=== PATIENT | male | born 1955 | race Caucasian/White ===

== ENCOUNTER 2017-09-22 21:17 | Inpatient (IN) | payer BC ==
[~2017-09-22] VITALS: Ht 175.3 cm; Wt 72.7 kg
[~2017-09-22 21:17] MED LIST: ACET325 PO; ALBU90OI INH; ALUMAG30SU PO; ASPI325 PT; ASPI325EC PO; ATOR10; ATOR40TA PO; ATOR40TA PT; Ambien10 MG PO; Ativan1 MG PO; CALCA400CH PO; CHLORHEXIDINE FL1 ML MC; CLOP75 PT; Coreg12.5 MG PO; DIPH50 PO; DOC100SO; DOCU100 PO; DULERA 200 MCG/13 GM INH; Flagyl500 MG PO; Flomax0.4 MG PO; GABA250SO PO; GABA250SO PT; GABA300; GABA300 PO; HYDACE10B PO; LAVAP17G PO; LEVFLO500; LEVOFLOXACIN500 MG PO; LEVSOD125 PT; LEVSOD25 PO; LISI5 PO; LORA1 PO; METF500; METO25 PT; METO25ER PO; METPRE4DP PO; NAPR500 PO; OMEP20ER PO; OXYACE5T PO; OXYC1L PO; Oxycodone-Apap1 EAC3 PO; PRILOSEC; PROP10; Penicillin250 MG/5 M PO; Percocet 5-3251 EACH PO; Periogard473 ML MM; SENN8.8S8 PO; SERT100 PO; SIME40L; Synthroid/Lev0.15 MG PO; TEMA15 PO; VALS80; VALSARTAN PO; VALSARTAN/HCTZ; ZOLP10 PO; ZOLP5; Zithromax200 MG/5 M PO; Zofran Odt8 MG PO; Zofran Odt8 MG SL; [UNRECOGNIZED DRUG - OTHER] PO
[2017-09-22] MEDS ORDERED: BACL10 PO (23:09)
[2017-09-22] MEDS ORDERED: Questran4 GM (23:11)
[2017-09-22] MEDS ORDERED: Benadryl 50 mg50 MG PT (23:12)
[2017-09-22] MEDS ORDERED: GABA250SO PO (23:13)
[2017-09-22] MEDS ORDERED: LORA1 PO (23:14)
[2017-09-22] MEDS ORDERED: HYDR-86 PO (23:14)
[2017-09-22 23:18] LABS: BASOPHILS ABSOLUTE AUTO 0.02 K/mm3 (0.00-0.23); BASOPHILS PERCENT AUTO 0 % (0-2); EOSINOPHILS PERCENT AUTO 2 % (0-6); Hematocrit 28.1 % (37.0-53.0); Hemoglobin 8.9 g/dL (13.5-17.5); IMMATURE GRAN ABSOLUTE AUTO 0.02 K/mm3 (0.00-0.10); IMMATURE GRAN PERCENT AUTO 0 % (0-1); LYMPHOCYTES ABSOLUTE AUTO 1.69 K/mm3 (0.84-5.20); LYMPHOCYTES PERCENT AUTO 18 % (21-46); MONOCYTES ABSOLUTE AUTO 0.62 K/mm3 (0.16-1.47); MONOCYTES PERCENT AUTO 7 % (4-13); Mean Corpuscular HGB 27.4 pg (26.0-34.0); Mean Corpuscular HGB Conc 31.7 g/dL (31.5-36.5); Mean Corpuscular Volume 87 fL (80-100); Mean Platelet Volume 8.8 fL (9.1-12.4); NEUTROPHILS ABSOLUTE AUTO 6.64 K/mm3 (1.96-9.15); NEUTROPHILS PERCENT AUTO 72 % (41-73); Platelet Count 507 K/mm3 (150-400); RDW Coefficient Variation 19.7 % (11.7-14.2); RDW Standard Deviation 60.4 fL (35.1-46.3); Red Blood Cell Count 3.25 M/mm3 (4.30-5.90); White Blood Cell Count 9.19 K/mm3 (4.00-11.30)
[2017-09-22 23:30] LABS: International Normalized Ratio 1.09; Prothrombin Time Results 11.4 Sec (9.7-11.5)
[2017-09-22 23:34] LABS: Alanine Aminotransfer (ALT/SGP 31 U/L (12-78); Albumin, Blood 1.7 g/dL (3.4-5.0); Albumin/Globulin Ratio 0.4 (0.8-1.8); Alk Phos 188 U/L (50-136); Anion Gap 8 mmol/L (6-16); Aspartate Aminotrans (AST/SGOT 38 U/L (12-37); Bilirubin, Total 0.3 mg/dL (0.1-1.0); Blood Urea Nitrogen 7 mg/dL (8-24); Bun/Creatinine Ratio 8.9 (12.0-20.0); CO2, Blood 29 mmol/L (21-32); CPK Creatine Kinase 96 U/L (39-308); Calcium, Blood 7.7 mg/dL (8.5-10.1); Chloride, Blood 104 mmol/L (98-108); Creatinine, Blood 0.79 mg/dL (0.60-1.20); Globulin, Blood 4.3 g/dL (2.2-4.0); Glomerular Filtration Rate >60 (60-); Glucose, Blood 70 mg/dL (70-99); Sodium, Blood 141 mmol/L (136-145); Troponin I <0.015 ng/mL (0.000-0.040)
[2017-09-22 23:38] LABS: Thyroid Stimulating Hormone 0.012 uIU/mL (0.360-4.800); Triiodothyronine, Free 1.58 pg/mL (2.18-3.98)
[2017-09-23 00:14] LABS: Source, Urine Catheter
[2017-09-23 00:18] LABS: Bilirubin, Urine Neg (Neg); Blood, Urine 2+ (Neg); Glucose Qualitative, Urine Neg (Neg); Ketones, Urine Neg (Neg); Leukocyte Esterase, Urine 3+ (Neg); Nitrite, Urine Neg (Neg); Protein, Urine Neg (Neg); Urobilinogen, Urine NORM (Normal)
[2017-09-23 00:43] LABS: Appearance, Urine Cloudy (Clear); Color, Urine Yellow (P-Yellow)
[2017-09-23 00:44] LABS: Bacteria Many /hpf; Squamous Epithelial Cells Not Seen /hpf (Few); White Blood Cells, Urine TNTC /hpf (0-5)
[2017-09-23 01:15] LABS: Magnesium, Blood 1.5 mg/dL (1.6-2.4)
[2017-09-23 05:00] LABS: U Amphetamine Screen Not Detected; U Barbituate Screen Not Detected; U Benzodiazapine Screen DETECTED; U Buprenorphine Screen Not Detected; U Cannabinoids Screen Not Detected; U Cocaine Screen Not Detected; U Methadone Screen Not Detected; U Methamphetamine Screen Not Detected; U Opiates Screen DETECTED; U Oxycodone Screen Not Detected; U Phencyclidine Screen Not Detected; U Propoxyphene Screen Not Detected
[2017-09-23 05:59] LABS: BASOPHILS ABSOLUTE AUTO 0.03 K/mm3 (0.00-0.23); BASOPHILS PERCENT AUTO 0 % (0-2); EOSINOPHILS ABSOLUTE AUTO 0.32 K/mm3 (0.00-0.68); EOSINOPHILS PERCENT AUTO 3 % (0-6); Hematocrit 27.7 % (37.0-53.0); Hemoglobin 8.6 g/dL (13.5-17.5); IMMATURE GRAN ABSOLUTE AUTO 0.03 K/mm3 (0.00-0.10); IMMATURE GRAN PERCENT AUTO 0 % (0-1); LYMPHOCYTES ABSOLUTE AUTO 1.36 K/mm3 (0.84-5.20); LYMPHOCYTES PERCENT AUTO 12 % (21-46); MONOCYTES ABSOLUTE AUTO 0.54 K/mm3 (0.16-1.47); MONOCYTES PERCENT AUTO 5 % (4-13); Mean Corpuscular HGB 27.3 pg (26.0-34.0); Mean Corpuscular Volume 88 fL (80-100); Mean Platelet Volume 8.4 fL (9.1-12.4); NEUTROPHILS ABSOLUTE AUTO 9.09 K/mm3 (1.96-9.15); NEUTROPHILS PERCENT AUTO 80 % (41-73); Platelet Count 433 K/mm3 (150-400); RDW Coefficient Variation 19.8 % (11.7-14.2); RDW Standard Deviation 61.1 fL (35.1-46.3); Red Blood Cell Count 3.15 M/mm3 (4.30-5.90); White Blood Cell Count 11.37 K/mm3 (4.00-11.30)
[2017-09-23 06:17] LABS: Alanine Aminotransfer (ALT/SGP 24 U/L (12-78); Albumin, Blood 1.6 g/dL (3.4-5.0); Albumin/Globulin Ratio 0.4 (0.8-1.8); Alk Phos 181 U/L (50-136); Anion Gap 8 mmol/L (6-16); Aspartate Aminotrans (AST/SGOT 31 U/L (12-37); Bilirubin, Total 0.3 mg/dL (0.1-1.0); Blood Urea Nitrogen 5 mg/dL (8-24); Bun/Creatinine Ratio 6.8 (12.0-20.0); CO2, Blood 29 mmol/L (21-32); Calcium, Blood 7.3 mg/dL (8.5-10.1); Chloride, Blood 107 mmol/L (98-108); Creatinine, Blood 0.74 mg/dL (0.60-1.20); Globulin, Blood 3.6 g/dL (2.2-4.0); Glomerular Filtration Rate >60 (60-); Glucose, Blood 62 mg/dL (70-99); Potassium, Blood 3.9 mmol/L (3.5-5.5); Sodium, Blood 144 mmol/L (136-145); Total Protein, Blood 5.2 g/dL (6.4-8.2)
[2017-09-24 07:14] LABS: BASOPHILS ABSOLUTE AUTO 0.03 K/mm3 (0.00-0.23); BASOPHILS PERCENT AUTO 0 % (0-2); EOSINOPHILS ABSOLUTE AUTO 0.12 K/mm3 (0.00-0.68); EOSINOPHILS PERCENT AUTO 1 % (0-6); Hematocrit 26.2 % (37.0-53.0); Hemoglobin 8.1 g/dL (13.5-17.5); IMMATURE GRAN ABSOLUTE AUTO 0.07 K/mm3 (0.00-0.10); IMMATURE GRAN PERCENT AUTO 0 % (0-1); LYMPHOCYTES ABSOLUTE AUTO 1.02 K/mm3 (0.84-5.20); LYMPHOCYTES PERCENT AUTO 6 % (21-46); MONOCYTES ABSOLUTE AUTO 1.02 K/mm3 (0.16-1.47); MONOCYTES PERCENT AUTO 6 % (4-13); Mean Corpuscular HGB 27.8 pg (26.0-34.0); Mean Corpuscular HGB Conc 30.9 g/dL (31.5-36.5); Mean Corpuscular Volume 90 fL (80-100); Mean Platelet Volume 8.7 fL (9.1-12.4); NEUTROPHILS ABSOLUTE AUTO 16.45 K/mm3 (1.96-9.15); NEUTROPHILS PERCENT AUTO 88 % (41-73); Platelet Count 454 K/mm3 (150-400); RDW Coefficient Variation 20.2 % (11.7-14.2); RDW Standard Deviation 62.6 fL (35.1-46.3); Red Blood Cell Count 2.91 M/mm3 (4.30-5.90); White Blood Cell Count 18.71 K/mm3 (4.00-11.30)
[2017-09-24 07:47] LABS: Alanine Aminotransfer (ALT/SGP 28 U/L (12-78); Albumin, Blood 1.6 g/dL (3.4-5.0); Albumin/Globulin Ratio 0.5 (0.8-1.8); Alk Phos 177 U/L (50-136); Anion Gap 6 mmol/L (6-16); Aspartate Aminotrans (AST/SGOT 45 U/L (12-37); Bilirubin, Total 0.3 mg/dL (0.1-1.0); Blood Urea Nitrogen 7 mg/dL (8-24); Bun/Creatinine Ratio 9.9 (12.0-20.0); CO2, Blood 29 mmol/L (21-32); Calcium, Blood 7.3 mg/dL (8.5-10.1); Chloride, Blood 110 mmol/L (98-108); Globulin, Blood 3.4 g/dL (2.2-4.0); Glomerular Filtration Rate >60 (60-); Glucose, Blood 99 mg/dL (70-99); Magnesium, Blood 1.4 mg/dL (1.6-2.4); Phosphorus, Blood 3.6 mg/dL (2.5-4.9); Potassium, Blood 3.9 mmol/L (3.5-5.5); Prealbumin, Blood 14.9 mg/dL (20.0-40.0); Sodium, Blood 145 mmol/L (136-145)
[2017-09-25 08:14] LABS: BASOPHILS ABSOLUTE AUTO 0.03 K/mm3 (0.00-0.23); BASOPHILS PERCENT AUTO 0 % (0-2); EOSINOPHILS ABSOLUTE AUTO 0.19 K/mm3 (0.00-0.68); EOSINOPHILS PERCENT AUTO 1 % (0-6); Hematocrit 24.8 % (37.0-53.0); Hemoglobin 7.5 g/dL (13.5-17.5); IMMATURE GRAN ABSOLUTE AUTO 0.06 K/mm3 (0.00-0.10); IMMATURE GRAN PERCENT AUTO 0 % (0-1); LYMPHOCYTES ABSOLUTE AUTO 0.96 K/mm3 (0.84-5.20); LYMPHOCYTES PERCENT AUTO 4 % (21-46); MONOCYTES ABSOLUTE AUTO 0.88 K/mm3 (0.16-1.47); MONOCYTES PERCENT AUTO 4 % (4-13); Mean Corpuscular HGB 27.3 pg (26.0-34.0); Mean Corpuscular HGB Conc 30.2 g/dL (31.5-36.5); Mean Corpuscular Volume 90 fL (80-100); Mean Platelet Volume 8.5 fL (9.1-12.4); NEUTROPHILS ABSOLUTE AUTO 21.53 K/mm3 (1.96-9.15); NEUTROPHILS PERCENT AUTO 91 % (41-73); Platelet Count 382 K/mm3 (150-400); RDW Coefficient Variation 20.7 % (11.7-14.2); RDW Standard Deviation 66.2 fL (35.1-46.3); Red Blood Cell Count 2.75 M/mm3 (4.30-5.90); White Blood Cell Count 23.65 K/mm3 (4.00-11.30)
[2017-09-25 08:23] LABS: International Normalized Ratio 1.18; Prothrombin Time Results 12.3 Sec (9.7-11.5)
[2017-09-25 08:33] LABS: Alanine Aminotransfer (ALT/SGP 25 U/L (12-78); Albumin, Blood 1.3 g/dL (3.4-5.0); Albumin/Globulin Ratio 0.4 (0.8-1.8); Alk Phos 147 U/L (50-136); Anion Gap 4 mmol/L (6-16); Aspartate Aminotrans (AST/SGOT 33 U/L (12-37); Bilirubin, Total 0.2 mg/dL (0.1-1.0); Blood Urea Nitrogen 9 mg/dL (8-24); Bun/Creatinine Ratio 15.2 (12.0-20.0); CO2, Blood 30 mmol/L (21-32); Calcium, Blood 6.9 mg/dL (8.5-10.1); Chloride, Blood 111 mmol/L (98-108); Creatinine, Blood 0.59 mg/dL (0.60-1.20); Globulin, Blood 3.3 g/dL (2.2-4.0); Glomerular Filtration Rate >60 (60-); Glucose, Blood 154 mg/dL (70-99); Magnesium, Blood 1.7 mg/dL (1.6-2.4); Phosphorus, Blood 1.8 mg/dL (2.5-4.9); Potassium, Blood 3.5 mmol/L (3.5-5.5); Sodium, Blood 145 mmol/L (136-145); Total Protein, Blood 4.6 g/dL (6.4-8.2)
[2017-09-25 14:15] LABS: Vancomycin, Trough 16.6 ug/mL (5.0-10.0)
[2017-09-26 06:56] LABS: BASOPHILS ABSOLUTE AUTO 0.02 K/mm3 (0.00-0.23); BASOPHILS PERCENT AUTO 0 % (0-2); EOSINOPHILS ABSOLUTE AUTO 0.36 K/mm3 (0.00-0.68); EOSINOPHILS PERCENT AUTO 2 % (0-6); Hematocrit 26.3 % (37.0-53.0); Hemoglobin 8.2 g/dL (13.5-17.5); IMMATURE GRAN ABSOLUTE AUTO 0.03 K/mm3 (0.00-0.10); IMMATURE GRAN PERCENT AUTO 0 % (0-1); LYMPHOCYTES ABSOLUTE AUTO 0.88 K/mm3 (0.84-5.20); LYMPHOCYTES PERCENT AUTO 6 % (21-46); MONOCYTES ABSOLUTE AUTO 0.52 K/mm3 (0.16-1.47); MONOCYTES PERCENT AUTO 4 % (4-13); Mean Corpuscular HGB 27.9 pg (26.0-34.0); Mean Corpuscular HGB Conc 31.2 g/dL (31.5-36.5); Mean Corpuscular Volume 90 fL (80-100); Mean Platelet Volume 8.8 fL (9.1-12.4); NEUTROPHILS ABSOLUTE AUTO 12.89 K/mm3 (1.96-9.15); NEUTROPHILS PERCENT AUTO 88 % (41-73); Platelet Count 323 K/mm3 (150-400); RDW Coefficient Variation 19.6 % (11.7-14.2); RDW Standard Deviation 62.3 fL (35.1-46.3); Red Blood Cell Count 2.94 M/mm3 (4.30-5.90)
[2017-09-26 07:15] LABS: Alanine Aminotransfer (ALT/SGP 20 U/L (12-78); Albumin, Blood 1.1 g/dL (3.4-5.0); Albumin/Globulin Ratio 0.3 (0.8-1.8); Alk Phos 133 U/L (50-136); Anion Gap 5 mmol/L (6-16); Aspartate Aminotrans (AST/SGOT 26 U/L (12-37); Bilirubin, Total 0.3 mg/dL (0.1-1.0); Blood Urea Nitrogen 11 mg/dL (8-24); Bun/Creatinine Ratio 20.1 (12.0-20.0); CO2, Blood 30 mmol/L (21-32); Calcium, Blood 6.8 mg/dL (8.5-10.1); Chloride, Blood 112 mmol/L (98-108); Creatinine, Blood 0.55 mg/dL (0.60-1.20); Globulin, Blood 3.2 g/dL (2.2-4.0); Glomerular Filtration Rate >60 (60-); Glucose, Blood 83 mg/dL (70-99); Magnesium, Blood 1.7 mg/dL (1.6-2.4); Potassium, Blood 3.7 mmol/L (3.5-5.5); Sodium, Blood 147 mmol/L (136-145); Total Protein, Blood 4.3 g/dL (6.4-8.2)
[2017-09-26 14:33] LABS: Vancomycin, Trough 23.5 ug/mL (5.0-10.0)
[2017-09-27 01:58] LABS: Alanine Aminotransfer (ALT/SGP 21 U/L (12-78); Albumin, Blood 1.1 g/dL (3.4-5.0); Albumin/Globulin Ratio 0.3 (0.8-1.8); Alk Phos 127 U/L (50-136); Anion Gap 4 mmol/L (6-16); Aspartate Aminotrans (AST/SGOT 24 U/L (12-37); Bilirubin, Total 0.1 mg/dL (0.1-1.0); Blood Urea Nitrogen 12 mg/dL (8-24); Bun/Creatinine Ratio 20.6 (12.0-20.0); CO2, Blood 29 mmol/L (21-32); Calcium, Blood 6.7 mg/dL (8.5-10.1); Chloride, Blood 112 mmol/L (98-108); Creatinine, Blood 0.58 mg/dL (0.60-1.20); Globulin, Blood 3.4 g/dL (2.2-4.0); Glomerular Filtration Rate >60 (60-); Glucose, Blood 117 mg/dL (70-99); Magnesium, Blood 1.8 mg/dL (1.6-2.4); Phosphorus, Blood 1.5 mg/dL (2.5-4.9); Sodium, Blood 145 mmol/L (136-145); Total Protein, Blood 4.5 g/dL (6.4-8.2); Vancomycin, Trough 14.2 ug/mL (5.0-10.0)
[2017-09-28 05:20] LABS: Hematocrit 27.2 % (37.0-53.0); Hemoglobin 8.7 g/dL (13.5-17.5); Mean Corpuscular HGB 28.2 pg (26.0-34.0); Mean Corpuscular Volume 88 fL (80-100); Platelet Count 340 K/mm3 (150-400); RDW Coefficient Variation 19.4 % (11.7-14.2); RDW Standard Deviation 62.4 fL (35.1-46.3); Red Blood Cell Count 3.09 M/mm3 (4.30-5.90); White Blood Cell Count 12.16 K/mm3 (4.00-11.30)
[2017-09-28 05:50] LABS: Albumin, Blood 1.2 g/dL (3.4-5.0); Anion Gap 5 mmol/L (6-16); Blood Urea Nitrogen 10 mg/dL (8-24); CO2, Blood 30 mmol/L (21-32); Chloride, Blood 109 mmol/L (98-108); Creatinine, Blood 0.53 mg/dL (0.60-1.20); Glomerular Filtration Rate >60 (60-); Glucose, Blood 80 mg/dL (70-99); Phosphorus, Blood 1.3 mg/dL (2.5-4.9); Potassium, Blood 4.2 mmol/L (3.5-5.5); Sodium, Blood 144 mmol/L (136-145)
[2017-09-29 05:29] LABS: Hematocrit 28.1 % (37.0-53.0); Hemoglobin 8.9 g/dL (13.5-17.5); Mean Corpuscular HGB 28.2 pg (26.0-34.0); Mean Corpuscular HGB Conc 31.7 g/dL (31.5-36.5); Mean Corpuscular Volume 89 fL (80-100); Mean Platelet Volume 8.9 fL (9.1-12.4); Platelet Count 347 K/mm3 (150-400); RDW Coefficient Variation 19.4 % (11.7-14.2); RDW Standard Deviation 63.2 fL (35.1-46.3); Red Blood Cell Count 3.16 M/mm3 (4.30-5.90); White Blood Cell Count 9.61 K/mm3 (4.00-11.30)
[2017-09-29 05:40] LABS: Albumin, Blood 1.3 g/dL (3.4-5.0); Anion Gap 4 mmol/L (6-16); Blood Urea Nitrogen 12 mg/dL (8-24); Bun/Creatinine Ratio 20.9 (12.0-20.0); CO2, Blood 31 mmol/L (21-32); Calcium, Blood 7.3 mg/dL (8.5-10.1); Chloride, Blood 106 mmol/L (98-108); Creatinine, Blood 0.58 mg/dL (0.60-1.20); Glomerular Filtration Rate >60 (60-); Glucose, Blood 87 mg/dL (70-99); Magnesium, Blood 1.9 mg/dL (1.6-2.4); Phosphorus, Blood 2.5 mg/dL (2.5-4.9); Potassium, Blood 4.7 mmol/L (3.5-5.5); Sodium, Blood 141 mmol/L (136-145)
[2017-10-01 05:55] LABS: Anion Gap 5 mmol/L (6-16); Blood Urea Nitrogen 13 mg/dL (8-24); Bun/Creatinine Ratio 22.3 (12.0-20.0); CO2, Blood 30 mmol/L (21-32); Calcium, Blood 7.6 mg/dL (8.5-10.1); Chloride, Blood 106 mmol/L (98-108); Creatinine, Blood 0.58 mg/dL (0.60-1.20); Glomerular Filtration Rate >60 (60-); Glucose, Blood 87 mg/dL (70-99); Phosphorus, Blood 3.7 mg/dL (2.5-4.9); Potassium, Blood 4.7 mmol/L (3.5-5.5); Sodium, Blood 141 mmol/L (136-145)
[2017-10-03] MEDS ORDERED: CULTURELLE1 EACH PO (15:21)
[2017-10-03] MEDS ORDERED: METR500 PO (15:22)
[2017-10-03] MEDS ORDERED: FOLI1 PO (15:22)
[2017-10-03] MEDS ORDERED: SACC250C PO (15:23)
[2017-10-03] MEDS ORDERED: QUET100 PO (15:23)
[2017-10-03] MEDS ORDERED: ZINC220 PO (15:24)
[2017-10-03] MEDS ORDERED: VANC250 (15:26)
== END 2017-10-03 18:19 | disposition home health service (06) | DRG 871 ==
LOC: ER 21:17 → MEDS 09-23 00:44
PROVIDERS: Emergency Medicine; Family Medicine; Internal Medicine
PROC: 3E0234Z Introduction of Serum, Toxoid and Vaccine into Muscle, Percutaneous Approach (ICD-10-PCS; 2017-09-23)
PROC: 30233N1 Transfusion of Nonautologous Red Blood Cells into Peripheral Vein, Percutaneous Approach (ICD-10-PCS; principal; 2017-09-25)
DX: A41.4 Sepsis due to anaerobes (principal); G92 Toxic encephalopathy; A04.72 Enterocolitis due to Clostridium difficile, not specified as recurrent; E44.0 Moderate protein-calorie malnutrition; N10 Acute pyelonephritis; Z93.0 Tracheostomy status; Z23 Encounter for immunization; I10 Essential (primary) hypertension; E78.5 Hyperlipidemia, unspecified; K21.9 Gastro-esophageal reflux disease without esophagitis; E86.0 Dehydration; Z68.21 Body mass index [BMI] 21.0-21.9, adult; D64.9 Anemia, unspecified; Z66 Do not resuscitate; Z78.1 Physical restraint status; E83.39 Other disorders of phosphorus metabolism; E16.2 Hypoglycemia, unspecified
CPT/HCPCS: 36415; 36430; 70450; 71046; 74177; 76770; 80048; 80053; 80069; 80202; 81001; 82140; 82550; 82947; 83605; 83690; 83735; 84100; 84134; 84145; 84439; 84443; 84481; 84484; 85025; 85027; 85610; 85730; 86850; 86900; 86901; 86923; 87040; 87077; 87086; 87186; 87493; 92507; 92597; 93005; 93010; 96360; 97110; 97116; 97161; 97164; 97166; 97168; 97530; 97535; 99285; C9113; G8978; G8979; G8987; G8988; G9174; G9175; J0696; J1630; J1650; J2060; J3010; J3370; J7030; J7050; P9016; Q9967

== ENCOUNTER → 2017-10-21 | Outpatient (CLI) | payer OTHER, BC ==
[~2017-10-21] MED LIST changes: +BACL10 PO; +Benadryl 50 mg50 MG PT; +CULTURELLE1 EACH PO; +FOLI1 PO; +HYDR-86 PO; +METR500 PO; +QUET100 PO; +Questran4 GM; +SACC250C PO; +VANC250; +ZINC220 PO
[2017-10-21 12:47] LABS: Adenovirus F 40/41 Not Detected (NOT DETECT); Astrovirus Not Detected (NOT DETECT); Campylobacter Sp Not Detected (NOT DETECT); Cryptosporidium Not Detected (NOT DETECT); Cyclospora Cayetanensis Not Detected (NOT DETECT); E. Coli O157 Not Detected (NOT DETECT); Entamoeba Histolytica Not Detected (NOT DETECT); Enteroaggregative E. coli-EAEC Not Detected (NOT DETECT); Enteropathogenic E. coli-EPEC Not Detected (NOT DETECT); Enterotoxigenic E. coli-ETEC Not Detected (NOT DETECT); Giardia Lamblia Not Detected (NOT DETECT); Norovirus GI/GII Not Detected (NOT DETECT); Plesiomonas Shigelloides Not Detected (NOT DETECT); Rotavirus A Not Detected (NOT DETECT); Salmonella Sp Not Detected (NOT DETECT); Sapovirus Not Detected (NOT DETECT); Shiga Toxin-prod E. coli-STEC Not Detected (NOT DETECT); Shigella/Enteroin E. coli-EIEC Not Detected (NOT DETECT); Vibrio Cholerae Not Detected (NOT DETECT); Vibrio Sp Not Detected (NOT DETECT); Yersinia Enterocolitica Not Detected (NOT DETECT)
== END | disposition home or self-care (01) ==
LOC: LAB EV 12:46
PROVIDERS: Physician Assistant Medical
DX: R19.7 Diarrhea, unspecified (principal)
CPT/HCPCS: 87507

== ENCOUNTER → 2017-10-21 | Outpatient (CLI) | payer OTHER, BC ==
[2017-10-21 13:12] LABS: BASOPHILS ABSOLUTE AUTO 0.04 K/mm3 (0.00-0.23); BASOPHILS PERCENT AUTO 0 % (0-2); EOSINOPHILS PERCENT AUTO 0 % (0-6); Hematocrit 30.6 % (37.0-53.0); Hemoglobin 9.9 g/dL (13.5-17.5); IMMATURE GRAN ABSOLUTE AUTO 0.07 K/mm3 (0.00-0.10); IMMATURE GRAN PERCENT AUTO 0 % (0-1); LYMPHOCYTES ABSOLUTE AUTO 0.83 K/mm3 (0.84-5.20); LYMPHOCYTES PERCENT AUTO 5 % (21-46); MONOCYTES ABSOLUTE AUTO 1.32 K/mm3 (0.16-1.47); MONOCYTES PERCENT AUTO 7 % (4-13); Mean Corpuscular HGB 29.1 pg (26.0-34.0); Mean Corpuscular HGB Conc 32.4 g/dL (31.5-36.5); Mean Corpuscular Volume 90 fL (80-100); Mean Platelet Volume 9.2 fL (9.1-12.4); NEUTROPHILS ABSOLUTE AUTO 16.14 K/mm3 (1.96-9.15); NEUTROPHILS PERCENT AUTO 88 % (41-73); Platelet Count 331 K/mm3 (150-400); RDW Coefficient Variation 18.6 % (11.7-14.2); RDW Standard Deviation 61.3 fL (35.1-46.3)
[2017-10-21 13:34] LABS: Alanine Aminotransfer (ALT/SGP 97 U/L (12-78); Albumin/Globulin Ratio 0.6 (0.8-1.8); Alk Phos 81 U/L (40-126); Anion Gap 7 mmol/L (6-16); Aspartate Aminotrans (AST/SGOT 93 U/L (12-37); Bilirubin, Total 0.4 mg/dL (0.1-1.0); Blood Urea Nitrogen 8 mg/dL (8-24); Bun/Creatinine Ratio 9.4 (12.0-20.0); CO2, Blood 28 mmol/L (21-32); Calcium, Blood 7.7 mg/dL (8.5-10.1); Chloride, Blood 102 mmol/L (98-108); Creatinine, Blood 0.85 mg/dL (0.60-1.20); Globulin, Blood 3.4 g/dL (2.2-4.0); Glomerular Filtration Rate >60 (60-); Glucose, Blood 105 mg/dL (70-99); Potassium, Blood 4.1 mmol/L (3.5-5.5); Sodium, Blood 137 mmol/L (136-145); Total Protein, Blood 5.4 g/dL (6.4-8.2)
== END | disposition home or self-care (01) ==
LOC: LAB EV 13:08
PROVIDERS: Physician Assistant Medical
DX: R19.7 Diarrhea, unspecified (principal)
CPT/HCPCS: 80053; 85025

== ENCOUNTER → 2017-10-24 | Outpatient (CLI) | payer OTHER, BC ==
[2017-10-24 18:28] LABS: BASOPHILS ABSOLUTE AUTO 0.03 K/mm3 (0.00-0.23); BASOPHILS PERCENT AUTO 0 % (0-2); EOSINOPHILS ABSOLUTE AUTO 0.03 K/mm3 (0.00-0.68); EOSINOPHILS PERCENT AUTO 0 % (0-6); Hematocrit 36.6 % (37.0-53.0); Hemoglobin 11.7 g/dL (13.5-17.5); IMMATURE GRAN ABSOLUTE AUTO 0.06 K/mm3 (0.00-0.10); IMMATURE GRAN PERCENT AUTO 1 % (0-1); LYMPHOCYTES ABSOLUTE AUTO 1.61 K/mm3 (0.84-5.20); LYMPHOCYTES PERCENT AUTO 16 % (21-46); MONOCYTES ABSOLUTE AUTO 0.63 K/mm3 (0.16-1.47); MONOCYTES PERCENT AUTO 6 % (4-13); Mean Corpuscular HGB 28.5 pg (26.0-34.0); Mean Corpuscular Volume 89 fL (80-100); Mean Platelet Volume 9.3 fL (9.1-12.4); NEUTROPHILS ABSOLUTE AUTO 7.88 K/mm3 (1.96-9.15); NEUTROPHILS PERCENT AUTO 77 % (41-73); Platelet Count 390 K/mm3 (150-400); RDW Coefficient Variation 17.9 % (11.7-14.2); RDW Standard Deviation 58.5 fL (35.1-46.3); Red Blood Cell Count 4.11 M/mm3 (4.30-5.90); White Blood Cell Count 10.24 K/mm3 (4.00-11.30)
[2017-10-24 18:38] LABS: Alanine Aminotransfer (ALT/SGP 92 U/L (12-78); Albumin, Blood 2.6 g/dL (3.4-5.0); Albumin/Globulin Ratio 0.5 (0.8-1.8); Alk Phos 98 U/L (40-126); Anion Gap 10 mmol/L (6-16); Aspartate Aminotrans (AST/SGOT 51 U/L (12-37); Bilirubin, Total 0.3 mg/dL (0.1-1.0); Blood Urea Nitrogen 12 mg/dL (8-24); Bun/Creatinine Ratio 13.2 (12.0-20.0); CO2, Blood 26 mmol/L (21-32); Calcium, Blood 8.8 mg/dL (8.5-10.1); Chloride, Blood 99 mmol/L (98-108); Creatinine, Blood 0.91 mg/dL (0.60-1.20); Globulin, Blood 4.9 g/dL (2.2-4.0); Glomerular Filtration Rate >60 (60-); Glucose, Blood 112 mg/dL (70-99); Potassium, Blood 3.9 mmol/L (3.5-5.5); Sodium, Blood 135 mmol/L (136-145); Total Protein, Blood 7.5 g/dL (6.4-8.2)
== END ==
LOC: LAB SHORT 18:23
PROVIDERS: General Practice
DX: C14.0 Malignant neoplasm of pharynx, unspecified (principal)
CPT/HCPCS: 80053; 85025

== ENCOUNTER 2017-12-18 00:58 | Emergency (ER) | payer BC ==
[~2017-12-18] VITALS: Ht 157.5 cm; Wt 59.0 kg
[2017-12-18 01:50] LABS: Calcium, Ionized (POC) 1.14 mmol/L (1.10-1.46); Chloride (POC) 112 mmol/L (98-108); Creatinine (POC) 1.2 mg/dL (0.8-1.3); Glucose (ISTAT POC) 99 mg/dL (70-99); Hemoglobin (POC) 5.8 g/dL (13.5-17.5); Potassium (POC) 4.3 mmol/L (3.5-5.5); Sodium (POC) 146 mmol/L (135-148); Total CO2 (POC) 23 mmol/L (21-32)
[2017-12-18 01:56] LABS: Alanine Aminotransfer (ALT/SGP 22 U/L (12-78); Albumin, Blood 2.1 g/dL (3.4-5.0); Albumin/Globulin Ratio 0.6 (0.8-1.8); Alk Phos 55 U/L (50-136); Anion Gap 9 mmol/L (6-16); Aspartate Aminotrans (AST/SGOT 17 U/L (12-37); Bilirubin, Total 0.2 mg/dL (0.1-1.0); Blood Urea Nitrogen 24 mg/dL (8-24); Bun/Creatinine Ratio 21.8 (12.0-20.0); CO2, Blood 22 mmol/L (21-32); Calcium, Blood 7.7 mg/dL (8.5-10.1); Chloride, Blood 114 mmol/L (98-108); Globulin, Blood 3.5 g/dL (2.2-4.0); Glomerular Filtration Rate >60 (60-); Glucose, Blood 131 mg/dL (70-99); Potassium, Blood 4.4 mmol/L (3.5-5.5); Sodium, Blood 145 mmol/L (136-145); Total Protein, Blood 5.6 g/dL (6.4-8.2); Troponin I <0.015 ng/mL (0.000-0.040)
[2017-12-18 02:00] LABS: BASOPHILS ABSOLUTE AUTO 0.04 K/mm3 (0.00-0.23); BASOPHILS PERCENT AUTO 0 % (0-2); EOSINOPHILS ABSOLUTE AUTO 0.09 K/mm3 (0.00-0.68); EOSINOPHILS PERCENT AUTO 1 % (0-6); Hematocrit 23.6 % (37.0-53.0); Hemoglobin 7.3 g/dL (13.5-17.5); IMMATURE GRAN ABSOLUTE AUTO 0.08 K/mm3 (0.00-0.10); IMMATURE GRAN PERCENT AUTO 1 % (0-1); LYMPHOCYTES ABSOLUTE AUTO 1.93 K/mm3 (0.84-5.20); LYMPHOCYTES PERCENT AUTO 18 % (21-46); MONOCYTES ABSOLUTE AUTO 0.73 K/mm3 (0.16-1.47); MONOCYTES PERCENT AUTO 7 % (4-13); Mean Corpuscular HGB 29.3 pg (26.0-34.0); Mean Corpuscular HGB Conc 30.9 g/dL (31.5-36.5); Mean Corpuscular Volume 95 fL (80-100); Mean Platelet Volume 10.1 fL (9.1-12.4); NEUTROPHILS ABSOLUTE AUTO 7.88 K/mm3 (1.96-9.15); NEUTROPHILS PERCENT AUTO 73 % (41-73); Platelet Count 266 K/mm3 (150-400); RDW Coefficient Variation 16.5 % (11.7-14.2); Red Blood Cell Count 2.49 M/mm3 (4.30-5.90); Thyroid Stimulating Hormone 0.011 uIU/mL (0.360-4.800); White Blood Cell Count 10.75 K/mm3 (4.00-11.30)
[2017-12-18 02:29] LABS: Triiodothyronine, Free 1.82 pg/mL (2.18-3.98)
== END 2017-12-18 05:22 | disposition short-term general hospital (02) ==
LOC: ER 00:58
PROVIDERS: Emergency Medicine
DX: R04.2 Hemoptysis (principal); Z79.899 Other long term (current) drug therapy; Z79.2 Long term (current) use of antibiotics
CPT/HCPCS: 36430; 70491; 71260; 80047; 80053; 83605; 84443; 84481; 84484; 85014; 85025; 86850; 86900; 86901; 86923; 93005; 93010; 99285; J7030; P9016; Q9967

== ENCOUNTER → 2018-11-12 | Outpatient (CLI) | payer MEDICARE, OTHER | END | disposition home or self-care (01) | LOC: PLD 11:10 → LAB SHORT 11:10 | DX: L30.8 Other specified dermatitis (principal) | CPT/HCPCS: 88305; 88312 ==

== ENCOUNTER 2019-06-08 13:27 | Emergency (ER) | payer MEDICARE, OTHER ==
[~2019-06-08] VITALS: Ht 175.3 cm; Wt 93.0 kg
[~2019-06-08 13:27] MED LIST changes: -ASPI325 PT; +ASPI81CH PO
[2019-06-08 15:18] LABS: Alanine Aminotransfer (ALT/SGP 19 U/L (12-78); Albumin, Blood 3.5 g/dL (3.4-5.0); Albumin/Globulin Ratio 0.9 (0.8-1.8); Alk Phos 70 U/L (50-136); Anion Gap 6 mmol/L (6-16); Aspartate Aminotrans (AST/SGOT 16 U/L (12-37); Bilirubin, Total 0.4 mg/dL (0.1-1.0); Blood Urea Nitrogen 25 mg/dL (8-24); Bun/Creatinine Ratio 22.5 (12.0-20.0); CO2, Blood 26 mmol/L (21-32); Calcium, Blood 8.4 mg/dL (8.5-10.1); Chloride, Blood 110 mmol/L (98-108); Creatinine, Blood 1.11 mg/dL (0.60-1.20); Globulin, Blood 3.9 g/dL (2.2-4.0); Glomerular Filtration Rate >60 (60-); Glucose, Blood 118 mg/dL (70-99); Sodium, Blood 142 mmol/L (136-145); Total Protein, Blood 7.4 g/dL (6.4-8.2)
[2019-06-08 15:19] LABS: Troponin I <0.015 ng/mL (0.000-0.040)
[2019-06-08 15:26] LABS: BASOPHILS ABSOLUTE AUTO 0.03 K/mm3 (0.00-0.23); BASOPHILS PERCENT AUTO 1 % (0-2); EOSINOPHILS ABSOLUTE AUTO 0.12 K/mm3 (0.00-0.68); EOSINOPHILS PERCENT AUTO 2 % (0-6); Hematocrit 35.9 % (37.0-53.0); Hemoglobin 11.6 g/dL (13.5-17.5); IMMATURE GRAN ABSOLUTE AUTO 0.03 K/mm3 (0.00-0.10); IMMATURE GRAN PERCENT AUTO 1 % (0-1); LYMPHOCYTES ABSOLUTE AUTO 1.21 K/mm3 (0.84-5.20); LYMPHOCYTES PERCENT AUTO 18 % (21-46); MONOCYTES ABSOLUTE AUTO 0.53 K/mm3 (0.16-1.47); MONOCYTES PERCENT AUTO 8 % (4-13); Mean Corpuscular HGB 31.4 pg (26.0-34.0); Mean Corpuscular HGB Conc 32.3 g/dL (31.5-36.5); Mean Corpuscular Volume 97 fL (80-100); Mean Platelet Volume 9.4 fL (9.1-12.4); NEUTROPHILS ABSOLUTE AUTO 4.69 K/mm3 (1.96-9.15); NEUTROPHILS PERCENT AUTO 71 % (41-73); Platelet Count 230 K/mm3 (150-400); RDW Coefficient Variation 14.9 % (11.7-14.2); RDW Standard Deviation 53.1 fL (35.1-46.3); White Blood Cell Count 6.61 K/mm3 (4.00-11.30)
[2019-06-14] MEDS ORDERED: TAMS.4ER PO (11:55)
[2019-06-14] MEDS ORDERED: QUET100 PO (11:56)
[2019-06-14] MEDS ORDERED: CLEM1.34 PO (13:54)
[2019-06-14] MEDS ORDERED: OXYC1L (13:55)
== END 2019-06-08 17:21 | disposition home or self-care (01) ==
LOC: ER 13:27
PROVIDERS: Emergency Medicine; Physician Assistant
DX: R42 Dizziness and giddiness (principal); R53.83 Other fatigue; I25.2 Old myocardial infarction; I10 Essential (primary) hypertension; E78.5 Hyperlipidemia, unspecified; K21.9 Gastro-esophageal reflux disease without esophagitis; I25.10 Atherosclerotic heart disease of native coronary artery without angina pectoris; Z85.21 Personal history of malignant neoplasm of larynx; Z79.899 Other long term (current) drug therapy; Z79.02 Long term (current) use of antithrombotics/antiplatelets; Z79.82 Long term (current) use of aspirin
CPT/HCPCS: 36415; 71046; 80053; 83880; 84443; 84484; 85025; 93005; 93010; 99284-25

== ENCOUNTER 2019-06-15 08:02 | Day surgery (SDC) | payer MEDICARE, OTHER ==
[~2019-06-15] VITALS: Ht 175.3 cm; Wt 93.2 kg
[~2019-06-15 08:02] MED LIST changes: +CLEM1.34 PO; +OXYC1L; +TAMS.4ER PO
[2019-06-15] MEDS ORDERED: METO25ER PO (08:51)
[2019-06-15] MEDS ORDERED: OMEPRAZOLE20 MG PO (08:52)
--- NOTE | 2019-06-15 13:15 | NUR ---
TR BAND REMOVED FROM RIGHT WRIST, RED CLOTH DOT DRESSING APPLIED. ARM BOARD ON FOR SUPPORT. PT AND VERBALIZED UNDERSTANDING OF D/C INSTRUCTIONS. PAPERWORK PLACED INTO DISCHARGE SECTION IN HEART CENTER BINDER. RIGHT WRIST SITE APPEARED SOFT NON TENDER WITH NO ACTIVE BLEEDING, OOZING, OR PAIN NOTED. PT IV REMOVED FROM RAC WITH CATH INTACT, PRESSURE DRESSING APPLIED. NADN AT TIME OF DISPO. VSS. PT DENIES NEED FOR W/C RIDE OUT OF FACILITY. AMBULATED WITH STEADY GAIT. ENCOURAGED TO FOLLOW UP SCHEDULED. TO DRIVE PT HOME.
== END 2019-06-15 13:10 | disposition home or self-care (01) ==
LOC: MHTC 08:02
DX: I25.10 Atherosclerotic heart disease of native coronary artery without angina pectoris (principal)
CPT/HCPCS: 36415; 83880; 85347; 93454; 93571; 99152; 99153; C1769; C1887; C1894; J1644; J2250; J3010; J7030; Q9967

== ENCOUNTER 2020-07-13 09:05 | Day surgery (SDC) | payer MEDICARE, OTHER ==
[~2020-07-13] VITALS: Ht 175.3 cm; Wt 95.3 kg
[~2020-07-13 09:05] MED LIST changes: +HYDROCHLOROTH12.5 MG PO; +OMEPRAZOLE20 MG PO
[2020-07-13] MEDS ORDERED: EUTHYROX125 MC1 PO (10:30)
[2020-07-13] MEDS ORDERED: ACET500 PO (10:30)
[2020-07-13] MEDS ORDERED: FURO20 PO (10:31)
[2020-07-13] MEDS ORDERED: QUET100 PO (10:32)
[2020-07-13] MEDS ORDERED: ALBU8HFA2 INH (10:33)
--- NOTE | 2020-07-14 11:32 | NUR ---
07/14/20 1132 Lalitha Keenan CHARTING WAS DONE ON THE DAY OF THE PROCEDURE ON A DOWN TIME FORM, DUE TO [facility] BEING DOWN. INFORMATION AND CHARTING DONE THE DAY AFTER IN [facility] BY CIRCULATING ELENA.
== END 2020-07-13 09:08 | disposition home or self-care (01) ==
LOC: ORSCSDS 09:05
PROVIDERS: Orthopaedic Surgery
PROC: 01N50ZZ Release Median Nerve, Open Approach (ICD-10-PCS; principal; 2020-07-13 07:30)
DX: G56.02 Carpal tunnel syndrome, left upper limb (principal); I10 Essential (primary) hypertension; E03.9 Hypothyroidism, unspecified; Z79.82 Long term (current) use of aspirin; Z79.899 Other long term (current) drug therapy
CPT/HCPCS: J0690; J2250; J2704; J3010; J7120

== ENCOUNTER 2021-02-09 10:04 | Day surgery (SDC) | payer MEDICARE, OTHER ==
[~2021-02-09] VITALS: Ht 175.3 cm; Wt 92.4 kg
[~2021-02-09 10:04] MED LIST changes: +ACET500 PO; +ALBU8HFA2 INH; +Aspir 8181 MG PO; +EUTHYROX125 MC1 PO; +FURO20 PO
--- NOTE | 2021-02-09 15:32 | NUR ---
02/09/21 1532 ANTONIO BUENROSTRO ANESTHESIA CONSULTED ON PT AND DETERMINED THERE WAS NO NEED FOR ANESTHESIA SEDATION REASON WAS FOR MARLENE AND PT NOW HAS TRACH, ELIMINATING OBSTRUCTIVE SLEEP APNEA, PER DR. CARLIN. THIS RN AGREED TO PERFORM CASE WITH DR. CARLIN ON STAND BY.
--- NOTE | 2021-02-09 15:35 | NUR ---
02/09/21 1535 ANTONIO BUENROSTRO PLEASE SEE MAR FLOW SHEET FOR DETAILED ACCOUNT. PT WAS TAKEN TO PROCEDURE ROOM. TRACH CUFF O2 PLACED AND NC FOR CO2 MONITORING BENEATH. PT REQUIRED BODY REPOSITIONING AND ASSISTIVE AIRWAY MANAGEMENT O2 SATS DROPPED TO 81% AFTER FIRST/SECOND DOSE OF PROPOFOL. O2 INCREASED TO 10L. SUCTION ON STANDBY. PT MAINTAINED O2 SATS OF 91% TO 95% ON 10L VIA TRACH. PROCEDURE PERFORMED. ONCE PROCEDURE WAS FINISHED, DR. SHAHID NOTIFIED DEMETRIO BAILON THAT HE NEEDED TO REPEAT EXAM TO PERFORM RANDOM COLON BXS. PT SEDATION CONTINUED. SEE - RESTART TIME, NEW CECUM TIME, AND SCOPE WITHDRAWAL TIME. NO ISSUES DURING PROCEDURE. PT RETURNS TO STEP DOWN.
== END 2021-02-09 12:40 | disposition home or self-care (01) ==
LOC: ORSCSDS 10:04
PROVIDERS: Internal Medicine Gastroenterology
PROC: 0DBM8ZX Excision of Descending Colon, Via Natural or Artificial Opening Endoscopic, Diagnostic (ICD-10-PCS; principal; 2021-02-09 11:30)
DX: R19.7 Diarrhea, unspecified (principal); D12.4 Benign neoplasm of descending colon; K57.30 Diverticulosis of large intestine without perforation or abscess without bleeding; K64.8 Other hemorrhoids; K21.9 Gastro-esophageal reflux disease without esophagitis; I10 Essential (primary) hypertension; E11.9 Type 2 diabetes mellitus without complications; E03.9 Hypothyroidism, unspecified; G47.33 Obstructive sleep apnea (adult) (pediatric); J45.909 Unspecified asthma, uncomplicated; Z79.899 Other long term (current) drug therapy
CPT/HCPCS: 88305; J2704

== ENCOUNTER 2021-02-26 15:40 | Emergency (ER) | payer MEDICARE, OTHER ==
[~2021-02-26] VITALS: Ht 175.3 cm; Wt 90.7 kg
[2021-02-26 15:59] LABS: BASOPHILS ABSOLUTE AUTO 0.04 K/mm3 (0.00-0.23); BASOPHILS PERCENT AUTO 0 % (0-2); EOSINOPHILS ABSOLUTE AUTO 0.05 K/mm3 (0.00-0.68); EOSINOPHILS PERCENT AUTO 1 % (0-6); Hematocrit 43.4 % (37.0-53.0); Hemoglobin 14.6 g/dL (13.5-17.5); IMMATURE GRAN ABSOLUTE AUTO 0.07 K/mm3 (0.00-0.10); IMMATURE GRAN PERCENT AUTO 1 % (0-1); LYMPHOCYTES ABSOLUTE AUTO 1.21 K/mm3 (0.84-5.20); LYMPHOCYTES PERCENT AUTO 12 % (21-46); MONOCYTES ABSOLUTE AUTO 0.65 K/mm3 (0.16-1.47); MONOCYTES PERCENT AUTO 6 % (4-13); Mean Corpuscular HGB 36.6 pg (26.0-34.0); Mean Corpuscular HGB Conc 33.6 g/dL (31.5-36.5); Mean Corpuscular Volume 109 fL (80-100); Mean Platelet Volume 9.4 fL (9.1-12.4); NEUTROPHILS ABSOLUTE AUTO 8.11 K/mm3 (1.96-9.15); NEUTROPHILS PERCENT AUTO 80 % (41-73); Platelet Count 269 K/mm3 (150-400); RDW Coefficient Variation 13.7 % (11.7-14.2); RDW Standard Deviation 55.8 fL (35.1-46.3); Red Blood Cell Count 3.99 M/mm3 (4.30-5.90); White Blood Cell Count 10.13 K/mm3 (4.00-11.30)
[2021-02-26 16:21] LABS: Alanine Aminotransfer (ALT/SGP 31 U/L (12-78); Alk Phos 79 U/L (50-136); Anion Gap 6 mmol/L (6-16); Aspartate Aminotrans (AST/SGOT 29 U/L (12-37); Bilirubin, Total 0.3 mg/dL (0.1-1.0); Blood Urea Nitrogen 22 mg/dL (8-24); Bun/Creatinine Ratio 17.9 (12.0-20.0); CO2, Blood 31 mmol/L (21-32); Calcium, Blood 8.9 mg/dL (8.5-10.1); Chloride, Blood 102 mmol/L (98-108); Creatinine, Blood 1.23 mg/dL (0.60-1.20); Globulin, Blood 4.2 g/dL (2.2-4.0); Glomerular Filtration Rate >60 (60-); Glucose, Blood 115 mg/dL (70-99); Potassium, Blood 3.9 mmol/L (3.5-5.5); Sodium, Blood 139 mmol/L (136-145); Total Protein, Blood 8.2 g/dL (6.4-8.2); Troponin I <0.015 ng/mL (0.000-0.040)
== END 2021-02-26 18:12 | disposition home or self-care (01) ==
LOC: ER 15:40
PROVIDERS: Physician Assistant
DX: R07.89 Other chest pain (principal); Z79.899 Other long term (current) drug therapy; Z79.82 Long term (current) use of aspirin; Z88.8 Allergy status to other drugs, medicaments and biological substances
CPT/HCPCS: 36415; 71046; 80053; 84484; 85025; 93005; 93010; 96374; 99285-25; J3010

== ENCOUNTER 2022-01-14 15:36 | Emergency (ER) | payer MEDICARE, OTHER ==
[~2022-01-14] VITALS: Ht 175.3 cm; Wt 90.7 kg
[2022-01-14 16:21] LABS: BASOPHILS ABSOLUTE AUTO 0.05 K/mm3 (0.00-0.23); BASOPHILS PERCENT AUTO 1 % (0-2); EOSINOPHILS ABSOLUTE AUTO 0.15 K/mm3 (0.00-0.68); EOSINOPHILS PERCENT AUTO 2 % (0-6); Hematocrit 41.2 % (37.0-53.0); Hemoglobin 13.8 g/dL (13.5-17.5); IMMATURE GRAN ABSOLUTE AUTO 0.06 K/mm3 (0.00-0.10); IMMATURE GRAN PERCENT AUTO 1 % (0-1); LYMPHOCYTES ABSOLUTE AUTO 1.19 K/mm3 (0.84-5.20); LYMPHOCYTES PERCENT AUTO 12 % (21-46); MONOCYTES PERCENT AUTO 6 % (4-13); Mean Corpuscular HGB 35.8 pg (26.0-34.0); Mean Corpuscular HGB Conc 33.5 g/dL (31.5-36.5); Mean Corpuscular Volume 107 fL (80-100); Mean Platelet Volume 9.1 fL (9.1-12.4); NEUTROPHILS ABSOLUTE AUTO 7.59 K/mm3 (1.96-9.15); NEUTROPHILS PERCENT AUTO 79 % (41-73); Platelet Count 290 K/mm3 (150-400); RDW Coefficient Variation 14.4 % (11.7-14.2); RDW Standard Deviation 56.4 fL (35.1-46.3); Red Blood Cell Count 3.85 M/mm3 (4.30-5.90); White Blood Cell Count 9.64 K/mm3 (4.00-11.30)
[2022-01-14 16:52] LABS: Albumin, Blood 4.3 g/dL (3.4-5.0); Bilirubin, Total 0.7 mg/dL (0.1-1.0); Bun/Creatinine Ratio 16.2 (12.0-20.0); Calcium, Blood 9.4 mg/dL (8.5-10.1); Creatinine, Blood 1.91 mg/dL (0.60-1.20); Globulin, Blood 4.4 g/dL (2.2-4.0); Potassium, Blood 4.1 mmol/L (3.5-5.5); Total Protein, Blood 8.7 g/dL (6.4-8.2)
== END 2022-01-14 17:59 | disposition home or self-care (01) ==
LOC: ER 15:36
PROVIDERS: Physician Assistant
DX: Z43.1 Encounter for attention to gastrostomy (principal); I10 Essential (primary) hypertension; E78.5 Hyperlipidemia, unspecified; K21.9 Gastro-esophageal reflux disease without esophagitis; Z88.8 Allergy status to other drugs, medicaments and biological substances; Z79.899 Other long term (current) drug therapy
CPT/HCPCS: 36415; 80053; 85025

== ENCOUNTER 2022-04-27 19:07 | Observation (INO) | payer MEDICARE, OTHER ==
[~2022-04-27] VITALS: Ht 175.3 cm; Wt 88.7 kg
[~2022-04-27 19:07] MED LIST changes: +GABAPENTIN250 MG/51 PT
[2022-04-27 20:04] LABS: BASOPHILS ABSOLUTE AUTO 0.04 K/mm3 (0.00-0.23); BASOPHILS PERCENT AUTO 1 % (0-2); EOSINOPHILS ABSOLUTE AUTO 0.14 K/mm3 (0.00-0.68); EOSINOPHILS PERCENT AUTO 2 % (0-6); Hematocrit 34.6 % (37.0-53.0); Hemoglobin 11.6 g/dL (13.5-17.5); IMMATURE GRAN ABSOLUTE AUTO 0.03 K/mm3 (0.00-0.10); IMMATURE GRAN PERCENT AUTO 1 % (0-1); LYMPHOCYTES ABSOLUTE AUTO 1.23 K/mm3 (0.84-5.20); LYMPHOCYTES PERCENT AUTO 19 % (21-46); MONOCYTES ABSOLUTE AUTO 0.43 K/mm3 (0.16-1.47); MONOCYTES PERCENT AUTO 7 % (4-13); Mean Corpuscular HGB 34.3 pg (26.0-34.0); Mean Corpuscular HGB Conc 33.5 g/dL (31.5-36.5); Mean Corpuscular Volume 102 fL (80-100); Mean Platelet Volume 9.1 fL (9.1-12.4); NEUTROPHILS ABSOLUTE AUTO 4.78 K/mm3 (1.96-9.15); NEUTROPHILS PERCENT AUTO 72 % (41-73); Platelet Count 212 K/mm3 (150-400); RDW Coefficient Variation 15.4 % (11.7-14.2); RDW Standard Deviation 58.1 fL (35.1-46.3); Red Blood Cell Count 3.38 M/mm3 (4.30-5.90); White Blood Cell Count 6.65 K/mm3 (4.00-11.30)
[2022-04-27 20:55] LABS: Magnesium, Blood 1.9 mg/dL (1.6-2.4)
[2022-04-27 21:27] LABS: Albumin, Blood 3.4 g/dL (3.4-5.0); Bilirubin, Total 0.4 mg/dL (0.1-1.0); Calcium, Blood 8.8 mg/dL (8.5-10.1); Creatinine, Blood 1.58 mg/dL (0.60-1.20); Globulin, Blood 3.5 g/dL (2.2-4.0); Potassium, Blood 4.6 mmol/L (3.5-5.5); Total Protein, Blood 6.9 g/dL (6.4-8.2)
[2022-04-27 23:50] LABS: Source, Urine Clean Catch
[2022-04-28 00:02] LABS: Bilirubin, Urine Neg (Neg); Blood, Urine 1+ (Neg); Glucose Qualitative, Urine Neg (Neg); Ketones, Urine Neg (Neg); Leukocyte Esterase, Urine Neg (Neg); Nitrite, Urine Neg (Neg); Protein, Urine Neg (Neg); Specific Gravity, Urine 1.015 (1.003-1.022); Urobilinogen, Urine NORM (Normal)
[2022-04-28 00:05] LABS: Appearance, Urine Clear (Clear); Color, Urine Yellow (P-Yellow)
[2022-04-28 00:13] LABS: U Amphetamine Screen Not Detected; U Barbituate Screen Not Detected; U Benzodiazapine Screen Not Detected; U Buprenorphine Screen Not Detected; U Cannabinoids Screen Not Detected; U Cocaine Screen Not Detected; U Methadone Screen Not Detected; U Methamphetamine Screen Not Detected; U Opiates Screen Not Detected; U Oxycodone Screen Not Detected; U Phencyclidine Screen Not Detected; U Propoxyphene Screen Not Detected
[2022-04-28 00:17] LABS: Bacteria Not Seen /hpf; Red Blood Cells, Urine 0-2 /hpf (0-2); Squamous Epithelial Cells Not Seen /hpf (Few); White Blood Cells, Urine Not Seen /hpf (0-5)
[2022-04-28] MEDS ORDERED: METO5A PO (11:08)
[2022-04-28] MEDS ORDERED: TIZA4 PO (11:10)
[2022-04-28] MEDS ORDERED: ZOLP10 PO (11:11)
[2022-04-28] MEDS ORDERED: LOSA50 PO (15:50)
[2022-04-28] MEDS ORDERED: LIOT5 PO (15:50)
--- NOTE | 2022-04-28 16:32 | NUR ---
PT BEING DISCHARGED TO HOME WITH HOME HEALTH, MEDS FAXED TO [facility], PT NOTIFIED HIS SPOUSE TO PICK THEM UP PRIOR TO DC, PT HAS BEEN PLEASANT AND COOPERATIVE WITH CARE, WAITING FOR SPOUSE TO ARRIVE WITH CLOTHES
== END 2022-04-28 16:57 | disposition home health service (06) ==
LOC: ER 19:07 → MEDS 19:08
PROVIDERS: Student in an Organized Health Care Education/Training Program; ADMIT Internal Medicine
DX: E03.9 Hypothyroidism, unspecified (principal); E78.5 Hyperlipidemia, unspecified; K21.9 Gastro-esophageal reflux disease without esophagitis; I12.9 Hypertensive chronic kidney disease with stage 1 through stage 4 chronic kidney disease, or unspecified chronic kidney disease; E11.22 Type 2 diabetes mellitus with diabetic chronic kidney disease; N18.30 Chronic kidney disease, stage 3 unspecified; F41.8 Other specified anxiety disorders; G47.33 Obstructive sleep apnea (adult) (pediatric); R29.6 Repeated falls; D63.8 Anemia in other chronic diseases classified elsewhere; Z85.21 Personal history of malignant neoplasm of larynx; Z88.8 Allergy status to other drugs, medicaments and biological substances; Z93.1 Gastrostomy status
CPT/HCPCS: 36415; 70450; 71046; 80053; 81001; 82947; 83605; 83735; 84439; 84443; 84481; 84484; 85025; 93005; 93010; 97112; 97161; A9270; G0480; J1650; J3010; J7030

== ENCOUNTER 2022-07-17 15:30 | Observation (INO) | payer OTHER, MEDICARE ==
[~2022-07-17] VITALS: Ht 175.3 cm; Wt 84.2 kg
[~2022-07-17 15:30] MED LIST changes: -ACET500 PO; +ACET500 PT; -EUTHYROX125 MC1 PO; +EUTHYROX125 MC1 PT; +LIOT5 PO; +LOSA50 PO; +METO5A PO; -OMEPRAZOLE20 MG PO; +OMEPRAZOLE20 MG PT; -OXYC1L; +OXYC1L PT; +QUET100 PT; -SERT100 PO; +SERT100 PT; -TAMS.4ER PO; +TAMS.4ER PT; +TIZA4 PT; +ZOLP10 PT
[2022-07-17 16:04] LABS: BASOPHILS ABSOLUTE AUTO 0.04 K/mm3 (0.00-0.23); BASOPHILS PERCENT AUTO 1 % (0-2); EOSINOPHILS ABSOLUTE AUTO 0.06 K/mm3 (0.00-0.68); EOSINOPHILS PERCENT AUTO 1 % (0-6); Hematocrit 38.4 % (37.0-53.0); Hemoglobin 12.9 g/dL (13.5-17.5); IMMATURE GRAN ABSOLUTE AUTO 0.03 K/mm3 (0.00-0.10); IMMATURE GRAN PERCENT AUTO 0 % (0-1); LYMPHOCYTES ABSOLUTE AUTO 1.28 K/mm3 (0.84-5.20); LYMPHOCYTES PERCENT AUTO 17 % (21-46); MONOCYTES ABSOLUTE AUTO 0.49 K/mm3 (0.16-1.47); MONOCYTES PERCENT AUTO 6 % (4-13); Mean Corpuscular HGB 35.2 pg (26.0-34.0); Mean Corpuscular HGB Conc 33.6 g/dL (31.5-36.5); Mean Corpuscular Volume 105 fL (80-100); Mean Platelet Volume 10.5 fL (9.1-12.4); NEUTROPHILS ABSOLUTE AUTO 5.87 K/mm3 (1.96-9.15); NEUTROPHILS PERCENT AUTO 76 % (41-73); Platelet Count 282 K/mm3 (150-400); RDW Standard Deviation 47.3 fL (35.1-46.3); Red Blood Cell Count 3.66 M/mm3 (4.30-5.90); White Blood Cell Count 7.77 K/mm3 (4.00-11.30)
[2022-07-17 18:28] LABS: Albumin, Blood 3.1 g/dL (3.4-5.0); Albumin/Globulin Ratio 0.9 (0.8-1.8); Bilirubin, Total 0.2 mg/dL (0.1-1.0); Bun/Creatinine Ratio 23.9 (12.0-20.0); Calcium, Blood 8.2 mg/dL (8.5-10.1); Creatinine, Blood 1.59 mg/dL (0.60-1.20); Globulin, Blood 3.5 g/dL (2.2-4.0); Potassium, Blood 4.4 mmol/L (3.5-5.5); Total Protein, Blood 6.6 g/dL (6.4-8.2)
[2022-07-17 21:12] LABS: Free Thyroxine 0.68 ng/dL (0.70-1.60)
[2022-07-17 21:14] LABS: Thyroid Stimulating Hormone 3.44 uIU/mL (0.360-4.800)
[2022-07-17] MEDS ORDERED: MIDO5 PT (21:42)
[2022-07-17] MEDS ORDERED: ASPI81CH PT (21:47)
--- NOTE | 2022-07-17 21:49 | NUR ---
REPORT RECEIVED FROM GERRI PARKER IN ER. PT ARRIVED TO FLOOR VIA GURNEY. PT TX TO BED WITH STANDBY ASSIST HE WAS STEADY ON FEET. DENIED PAIN, NAUSEA, CP, SOB. PT ASSISTED INTO GOWN. PT HAS PEG TUBE PLACED MID ABD PER PT TO TAKE HIS MEDICATIONS. PT REPORTS HE CANNOT TAKE ANY MEDICATIONS ORALLY AND HE CRUSHES AND PUTS THROUGH PEG TUBE. SITE CDI WITH NO REDNESS OR SWELLING. PT BP ELEVATED BUT STATED HE ALWAYS HAS HIGH BLOOD PRESSURE WHEN HE IS CHILLED. GAVE 2 WARM BLANKETS AND WILL RECHECK BP. TELE PLACED ND BLANKER OPERATOR REPORTED NSR WITH 1 DEGREE HEART BLOCK. PT ORIENTED TO ROOM, CALL LIGHT AND FALL PRECAUTIONS. ADVISED WE NEED A URINE SAMPLE TO RULE OUT UTI. PT VU. BED ALARM SET AND CALL LIGHT WITHIN REACH. BED IN LOW POSITION.
[2022-07-17 23:15] LABS: Source, Urine Clean Catch
[2022-07-17 23:20] LABS: Bilirubin, Urine Neg (Neg); Blood, Urine 1+ (Neg); Glucose Qualitative, Urine Neg (Neg); Ketones, Urine Neg (Neg); Leukocyte Esterase, Urine Neg (Neg); Nitrite, Urine Neg (Neg); Protein, Urine 2+ (Neg); Specific Gravity, Urine 1.015 (1.003-1.022); Urobilinogen, Urine NORM (Normal)
[2022-07-17 23:26] LABS: Appearance, Urine Clear (Clear); Color, Urine Yellow (P-Yellow)
[2022-07-17 23:38] LABS: Bacteria Few /hpf; Hyaline Casts 0-2 /lpf (0-2); Red Blood Cells, Urine 0-2 /hpf (0-2); Squamous Epithelial Cells Not Seen /hpf (Few); White Blood Cells, Urine 0-2 /hpf (0-5)
[2022-07-18 05:48] LABS: BASOPHILS ABSOLUTE AUTO 0.03 K/mm3 (0.00-0.23); BASOPHILS PERCENT AUTO 0 % (0-2); EOSINOPHILS ABSOLUTE AUTO 0.06 K/mm3 (0.00-0.68); EOSINOPHILS PERCENT AUTO 1 % (0-6); Hematocrit 40.1 % (37.0-53.0); Hemoglobin 13.6 g/dL (13.5-17.5); IMMATURE GRAN ABSOLUTE AUTO 0.03 K/mm3 (0.00-0.10); IMMATURE GRAN PERCENT AUTO 0 % (0-1); LYMPHOCYTES ABSOLUTE AUTO 1.19 K/mm3 (0.84-5.20); LYMPHOCYTES PERCENT AUTO 13 % (21-46); MONOCYTES ABSOLUTE AUTO 0.59 K/mm3 (0.16-1.47); MONOCYTES PERCENT AUTO 7 % (4-13); Mean Corpuscular HGB 34.7 pg (26.0-34.0); Mean Corpuscular HGB Conc 33.9 g/dL (31.5-36.5); Mean Corpuscular Volume 102 fL (80-100); Mean Platelet Volume 9.6 fL (9.1-12.4); NEUTROPHILS ABSOLUTE AUTO 7.14 K/mm3 (1.96-9.15); NEUTROPHILS PERCENT AUTO 79 % (41-73); Platelet Count 282 K/mm3 (150-400); RDW Coefficient Variation 11.9 % (11.7-14.2); RDW Standard Deviation 45.2 fL (35.1-46.3); Red Blood Cell Count 3.92 M/mm3 (4.30-5.90); White Blood Cell Count 9.04 K/mm3 (4.00-11.30)
[2022-07-18 06:10] LABS: Albumin, Blood 3.4 g/dL (3.4-5.0); Albumin/Globulin Ratio 0.9 (0.8-1.8); Bilirubin, Total 0.4 mg/dL (0.1-1.0); Bun/Creatinine Ratio 27.3 (12.0-20.0); Calcium, Blood 9.2 mg/dL (8.5-10.1); Creatinine, Blood 1.1 mg/dL (0.60-1.20); Globulin, Blood 3.8 g/dL (2.2-4.0); Potassium, Blood 3.5 mmol/L (3.5-5.5); Total Protein, Blood 7.2 g/dL (6.4-8.2)
--- NOTE | 2022-07-18 18:24 | NUR ---
PATIENT IS ALERT AND ORIENTED TO SELF, FAMILY, SITUATION. HE SCORED 8/30 ON SLUMS EXAM TODAY. HIS WAS CONCERNED THAT THE PATIENT MAY HAVEE DEMENTIA AND THEREFORE ASKED FOR SOME TESTING TO BE DONE DURING THIS ADMISSION. PATIENT HAD SOME CONCERNS WITH HIS MEDICATIONS THAT WERE RELAYED TO DR. ROSE. PATIENT INSISTS THAT HE DIDNT SLEEP LAST NIGHT BUT THE RN REPORTED THAT SHE KEPT HIM UP LATE WITH ADMISSION QUESTIONS AND THEN HE DID IN FACT SLEEP. ORTHOSTATIC VITALS WERE TAKEN THIS SHIFT, DR. ROSE NOTIFIED OF RESULTS. PATIENT HAS BEE HYPERTENSIVE THROUGHOUT THE SHIFT, DR. ROSE AWARE AND DECIDED NOT TO TREAT HYPERTENSION AT THIS TIME. 10 MAYURI TO THE BACK OF HIS HEAD. NO C/O DIZZINESS WITH ORTHOSTATIC HYPOTENSION. PATIENT IS STEADY ON HIS FEET AND IS IMPULSIVE AND WILL GET UP WITHOUT ASSISTANCE. WILL CONTINUE TO MONITOR AND GIVE REPORT TO ONCOMING RN.
--- NOTE | 2022-07-18 22:46 | NUR ---
Noted pt BP 215/97 lying after a few attempts. Sitting BP 189/100. Standing BP 156/94. Per day RN and MD notes, will d/c medications and allow some HTN. Paged industrial relations counselor MD with results, as 215/97 is too high in nursing judgement. New order for prn hydralyzine 10mg for SBP <165.
--- NOTE | 2022-07-19 03:42 | NUR ---
SHIFT SUMMARY PT AGITATED AT SHIFT START REGARDING SLEEP MEDICATION. PER PT AMBIEN DOESNT WORK FOR HIM AND PER DAY RN, HOSPITALIST WASNT WANTING TO CHANGE THE MEDICATION AT THIS TIME. . PT BECOMING MORE AND MORE AGITATED, BURLESQUE DANCER TO SPEAK WITH PT. PER , PT TAKES TEMAZEPAM 15MG AT NIGHT. PAGED ARTILLERY OR NAVAL GUNFIRE OBSERVER MD, NEW ORDER FOR MEDICATION. PT SETTLED AND CALM. NEW IV STARTED. A FEW HOURS LATER NOTED BP ELEVATED, SEE PREVIOUS NOTE. PT BP BETTER CONTROLLED WITH PRN. PT NEEDS REMINDING ARTILLERY OR NAVAL GUNFIRE OBSERVER LIGHT, BED ALARM ON. PEG BEING USED FOR MEDICATIONS ONLY, FLUSHES WELL. NO S/S OF RESPIRATORY DISTRESS, STOMA C/D/I. PT ABLE TO MAKE NEEDS KNOWN. WILL CONTINUE TO MONITOR.
[2022-07-19 05:45] LABS: BASOPHILS ABSOLUTE AUTO 0.03 K/mm3 (0.00-0.23); BASOPHILS PERCENT AUTO 0 % (0-2); EOSINOPHILS PERCENT AUTO 1 % (0-6); Hematocrit 40.6 % (37.0-53.0); Hemoglobin 13.4 g/dL (13.5-17.5); IMMATURE GRAN ABSOLUTE AUTO 0.03 K/mm3 (0.00-0.10); IMMATURE GRAN PERCENT AUTO 0 % (0-1); LYMPHOCYTES ABSOLUTE AUTO 1.15 K/mm3 (0.84-5.20); LYMPHOCYTES PERCENT AUTO 17 % (21-46); MONOCYTES ABSOLUTE AUTO 0.58 K/mm3 (0.16-1.47); MONOCYTES PERCENT AUTO 8 % (4-13); Mean Corpuscular HGB 34.2 pg (26.0-34.0); Mean Corpuscular Volume 104 fL (80-100); Mean Platelet Volume 9.6 fL (9.1-12.4); NEUTROPHILS ABSOLUTE AUTO 5.03 K/mm3 (1.96-9.15); NEUTROPHILS PERCENT AUTO 73 % (41-73); Platelet Count 270 K/mm3 (150-400); RDW Coefficient Variation 11.9 % (11.7-14.2); RDW Standard Deviation 45.9 fL (35.1-46.3); Red Blood Cell Count 3.92 M/mm3 (4.30-5.90); White Blood Cell Count 6.92 K/mm3 (4.00-11.30)
[2022-07-19 06:22] LABS: Albumin, Blood 3.2 g/dL (3.4-5.0); Albumin/Globulin Ratio 0.8 (0.8-1.8); Bilirubin, Total 0.3 mg/dL (0.1-1.0); Bun/Creatinine Ratio 20.4 (12.0-20.0); Calcium, Blood 9.3 mg/dL (8.5-10.1); Creatinine, Blood 1.13 mg/dL (0.60-1.20); Globulin, Blood 3.8 g/dL (2.2-4.0); Potassium, Blood 3.8 mmol/L (3.5-5.5)
--- NOTE | 2022-07-19 09:31 | NUR ---
NO DISTRESS, ALERT AND ORIENTED, MEDICATIONS VIA PEG TUBE, PEG TUBE SITE CLEANED AND SPONGE GAUZE IN PLACE, PATIENT HELPFUL WITH CARE, MAKES NEEDS KNOWN, PATIENT WANTING TO GO HOME, WAITING FOR EFM PROVIDER, CALL TYLERT WITH IN REACH
--- NOTE | 2022-07-19 15:18 | NUR ---
THIGH HIGH JAYLENE HOSE ON, PATIENT PLEASANT AND COOPERATIVE TO CARE
--- NOTE | 2022-07-19 18:34 | NUR ---
MAKES NEEDS KNOWN, HARSE LOW VOICE WHEN VOERING TRACH STOMA, HARD TO UNDERSTAND AT TIMES, ALERT AND ORIENTED, FORGETFUL, AND BECOMES OPPISTITIONAL TO CARE, RELUCTANT TO WORK WITH PT/OT, PAIN MEDS CHANGED FOR MOUTH PAIN ALSO, PEG TUBE SITE CLEANED AND GAUZE IN PLACE. ORTHOSTATIC BP STILL POSITIVE FOR SBP CHANGES OF 30+ FROM LYING TO STANDING, CALL LIGHT WITH IN REACH, NO ACUTE CHANGES, WILL RELAY TO PM RN
--- NOTE | 2022-07-20 03:42 | NUR ---
SHIFT SUMMARY NO OVERNIGHT EVENTS. BP IS BETTER CONTROLED, NO EPISODES OF HIGH BP. ORTHOSTATICS POSITIVE (LYING-153/81 72, SITTING 129/75 74, STANDING 103/65 68). PT SLEPT THROUGHOUT NIGHT AFTER SLEEPING PILL GIVEN. STABLE ON ROOM AIR. REQUESTING OXYCODONE FOR MOUTH/BACK/GENERAL PAIN. NEEDS REMINDING TO USE CALL LIGHT. WILL CONTINUE TO MONITOR.
[2022-07-20 05:28] LABS: BASOPHILS ABSOLUTE AUTO 0.02 K/mm3 (0.00-0.23); BASOPHILS PERCENT AUTO 0 % (0-2); EOSINOPHILS ABSOLUTE AUTO 0.12 K/mm3 (0.00-0.68); EOSINOPHILS PERCENT AUTO 2 % (0-6); Hematocrit 39.2 % (37.0-53.0); Hemoglobin 13.1 g/dL (13.5-17.5); IMMATURE GRAN ABSOLUTE AUTO 0.02 K/mm3 (0.00-0.10); IMMATURE GRAN PERCENT AUTO 0 % (0-1); LYMPHOCYTES ABSOLUTE AUTO 1.05 K/mm3 (0.84-5.20); LYMPHOCYTES PERCENT AUTO 15 % (21-46); MONOCYTES PERCENT AUTO 7 % (4-13); Mean Corpuscular HGB 34.7 pg (26.0-34.0); Mean Corpuscular HGB Conc 33.4 g/dL (31.5-36.5); Mean Corpuscular Volume 104 fL (80-100); Mean Platelet Volume 9.4 fL (9.1-12.4); NEUTROPHILS ABSOLUTE AUTO 5.37 K/mm3 (1.96-9.15); NEUTROPHILS PERCENT AUTO 76 % (41-73); Platelet Count 248 K/mm3 (150-400); RDW Standard Deviation 46.6 fL (35.1-46.3); Red Blood Cell Count 3.77 M/mm3 (4.30-5.90); White Blood Cell Count 7.08 K/mm3 (4.00-11.30)
[2022-07-20 06:13] LABS: Albumin/Globulin Ratio 0.8 (0.8-1.8); Bilirubin, Total 0.5 mg/dL (0.1-1.0); Bun/Creatinine Ratio 21.2 (12.0-20.0); Calcium, Blood 9.5 mg/dL (8.5-10.1); Creatinine, Blood 1.18 mg/dL (0.60-1.20); Globulin, Blood 3.9 g/dL (2.2-4.0); Potassium, Blood 3.9 mmol/L (3.5-5.5); Total Protein, Blood 6.9 g/dL (6.4-8.2)
[2022-07-20] MEDS ORDERED: LOSA25 PO (11:42)
[2022-07-20] MEDS ORDERED: FOLI1 PO (11:43)
[2022-07-20] MEDS ORDERED: B-1100 M1 PO (11:44)
[2022-07-20] MEDS ORDERED: DAILY-VITE1 EAC1 PO (11:44)
--- NOTE | 2022-07-20 13:54 | NUR ---
PT DISCHARGED AT 1350 WITH ALL PAPERWORK AND EDUCATIONAL MATERIAL SENT WITH HIM. NO DISTRESS NOTED AND PT DENIED ANY DIZZINESS. TO TRANSPORT HOME. PT REFUSED WHEELCHAIR AND INSISTED ON AMBULATING OUT WITH ON HIS OWN.PERSONAL BELONGINGS COLLECTED AND SENT WITH PT.
== END 2022-07-20 13:50 | disposition home health service (06) ==
LOC: ER 15:30 → MEDS 19:07
PROVIDERS: Emergency Medicine; Family Medicine; Hospitalist; ADMIT Internal Medicine
DX: I95.1 Orthostatic hypotension (principal); S01.01XA Laceration without foreign body of scalp, initial encounter; N17.9 Acute kidney failure, unspecified; R13.10 Dysphagia, unspecified; I10 Essential (primary) hypertension; E78.5 Hyperlipidemia, unspecified; K21.9 Gastro-esophageal reflux disease without esophagitis; I25.10 Atherosclerotic heart disease of native coronary artery without angina pectoris; F03.90 Unspecified dementia, unspecified severity, without behavioral disturbance, psychotic disturbance, mood disturbance, and anxiety; G89.4 Chronic pain syndrome; W18.30XA Fall on same level, unspecified, initial encounter; Y92.512 Supermarket, store or market as the place of occurrence of the external cause; Z88.8 Allergy status to other drugs, medicaments and biological substances; Z85.21 Personal history of malignant neoplasm of larynx; Z93.0 Tracheostomy status; Z93.1 Gastrostomy status; Z87.19 Personal history of other diseases of the digestive system; Z86.73 Personal history of transient ischemic attack (TIA), and cerebral infarction without residual deficits
CPT/HCPCS: 36415; 70450; 71045; 72125; 73030; 80053; 81001; 83880; 84439; 84443; 84484; 85025; 93005; 93010; 93306; 96372; 96374; 97129; 97162; 97165; 97530; A9270; G0378; J0360; J1650; J7030

== ENCOUNTER 2022-10-06 13:39 | Inpatient (IN) | payer MEDICARE, OTHER ==
[~2022-10-06] VITALS: Ht 167.6 cm; Wt 80.0 kg
[~2022-10-06 13:39] MED LIST changes: +ASPI81CH PT; +B-1100 M1 PO; +DAILY-VITE1 EAC1 PO; +LOSA25 PO; +MIDO5 PT
[2022-10-06 15:02] LABS: Influenza A, PCR NEGATIVE (NEGATIVE); Influenza B, PCR NEGATIVE (NEGATIVE); Resp Syncytial Virus, PCR NEGATIVE (NEGATIVE); SARS-Cov-2 (COVID-19) PCR, MMC NEGATIVE (NEGATIVE)
[2022-10-06 15:34] LABS: BASOPHILS ABSOLUTE AUTO 0.02 K/mm3 (0.00-0.23); BASOPHILS PERCENT AUTO 0 % (0-2); EOSINOPHILS PERCENT AUTO 0 % (0-6); Hematocrit 44.5 % (37.0-53.0); Hemoglobin 14.9 g/dL (13.5-17.5); IMMATURE GRAN ABSOLUTE AUTO 0.05 K/mm3 (0.00-0.10); IMMATURE GRAN PERCENT AUTO 0 % (0-1); LYMPHOCYTES ABSOLUTE AUTO 1.26 K/mm3 (0.84-5.20); LYMPHOCYTES PERCENT AUTO 9 % (21-46); MONOCYTES ABSOLUTE AUTO 0.66 K/mm3 (0.16-1.47); MONOCYTES PERCENT AUTO 5 % (4-13); Mean Corpuscular HGB 33.1 pg (26.0-34.0); Mean Corpuscular HGB Conc 33.5 g/dL (31.5-36.5); Mean Corpuscular Volume 99 fL (80-100); Mean Platelet Volume 9.3 fL (9.1-12.4); NEUTROPHILS ABSOLUTE AUTO 11.35 K/mm3 (1.96-9.15); NEUTROPHILS PERCENT AUTO 85 % (41-73); Platelet Count 305 K/mm3 (150-400); RDW Coefficient Variation 14.2 % (11.7-14.2); RDW Standard Deviation 51.8 fL (35.1-46.3); White Blood Cell Count 13.34 K/mm3 (4.00-11.30)
[2022-10-06 16:01] LABS: Source, Urine Clean Catch
[2022-10-06 16:05] LABS: Alanine Aminotransfer (ALT/SGP 20 U/L (12-78); Albumin, Blood 4.6 g/dL (3.4-5.0); Alk Phos 66 U/L (50-136); Anion Gap 10 mmol/L (6-16); Aspartate Aminotrans (AST/SGOT 23 U/L (12-37); Bilirubin, Total 0.9 mg/dL (0.1-1.0); Blood Urea Nitrogen 38 mg/dL (8-24); Bun/Creatinine Ratio 25.2 (12.0-20.0); CO2, Blood 25 mmol/L (21-32); Calcium, Blood 10.3 mg/dL (8.5-10.1); Chloride, Blood 105 mmol/L (98-108); Creatinine, Blood 1.51 mg/dL (0.60-1.20); Ethanol (Alcohol), Blood, Med <3 mg/dL; Globulin, Blood 4.6 g/dL (2.2-4.0); Glomerular Filtration Rate 50 (60-); Glucose, Blood 145 mg/dL (70-99); Sodium, Blood 140 mmol/L (136-145); Total Protein, Blood 9.2 g/dL (6.4-8.2)
[2022-10-06] MEDS ORDERED: ASPI81CH PT (16:09)
[2022-10-06] MEDS ORDERED: CLOP75 PO (16:09)
[2022-10-06] MEDS ORDERED: LEVSOD100 PT (16:10)
[2022-10-06 16:11] LABS: Magnesium, Blood 1.9 mg/dL (1.6-2.4)
[2022-10-06 16:12] LABS: Thyroid Stimulating Hormone 88.9 uIU/mL (0.360-4.800)
[2022-10-06] MEDS ORDERED: OXYC1L PT (16:13)
[2022-10-06 16:34] LABS: Appearance, Urine Clear (Clear); Bilirubin, Urine Neg (Neg); Blood, Urine 2+ (Neg); Color, Urine Yellow (P-Yellow); Glucose Qualitative, Urine Neg (Neg); Ketones, Urine 1+ (Neg); Leukocyte Esterase, Urine Neg (Neg); Nitrite, Urine Neg (Neg); Protein, Urine 3+ (Neg); Specific Gravity, Urine 1.025 (1.003-1.022); Urobilinogen, Urine NORM (Normal)
[2022-10-06 16:49] LABS: U Amphetamine Screen Not Detected; U Barbituate Screen Not Detected; U Benzodiazapine Screen Not Detected; U Buprenorphine Screen Not Detected; U Cannabinoids Screen Not Detected; U Cocaine Screen Not Detected; U Methadone Screen Not Detected; U Methamphetamine Screen Not Detected; U Opiates Screen Not Detected; U Oxycodone Screen Not Detected; U Phencyclidine Screen Not Detected; U Propoxyphene Screen Not Detected
[2022-10-06 16:52] LABS: White Blood Cells, Urine 0-2 /hpf (0-5)
[2022-10-06 16:53] LABS: Bacteria Few /hpf; Hyaline Casts 0-2 /lpf (0-2); Red Blood Cells, Urine 0-2 /hpf (0-2); Squamous Epithelial Cells Few /hpf (Few)
[2022-10-06 17:45] LABS: Base Excess Venous 0.9 mmol/L; Bicarbonate Venous 24.2 mmol/L (24.0-30.0); PCO2 Venous 46.4 mmHg (38-42); pH Blood Venous 7.36 (7.34-7.37)
[2022-10-06 18:15] LABS: Creatine Kinase MB 3.4 ng/mL (0.0-3.6); Creatine Kinase MB Index 3.1 (0.0-4.0)
--- NOTE | 2022-10-07 | NUR ---
ARRIVAL TO ICU PATIENT ARRIVED TO ICU 10 @ 0951. FAMILY WAITING IN ICU WAITING AREA. PATIENT IS ASLEEP, BUT EASILY AROUSABLE. NOT SPEAKING, BUT FOLLOWING SIMPLE COMMANDS. NO MEDS INF. BELONGINGS IN CUPBOARD. SON BROUGHT BACK TO ROOM AFTER PATIENT WAS SETTLED AND ASSISTED WITH ADMISSION QUESTIONS. SON TOOK PATIENTS CELL PHONE HOME.
[2022-10-07 03:49] LABS: BASOPHILS ABSOLUTE AUTO 0.03 K/mm3 (0.00-0.23); BASOPHILS PERCENT AUTO 0 % (0-2); EOSINOPHILS ABSOLUTE AUTO 0.01 K/mm3 (0.00-0.68); EOSINOPHILS PERCENT AUTO 0 % (0-6); Hematocrit 42.1 % (37.0-53.0); Hemoglobin 14.2 g/dL (13.5-17.5); IMMATURE GRAN ABSOLUTE AUTO 0.03 K/mm3 (0.00-0.10); IMMATURE GRAN PERCENT AUTO 0 % (0-1); LYMPHOCYTES ABSOLUTE AUTO 1.28 K/mm3 (0.84-5.20); LYMPHOCYTES PERCENT AUTO 10 % (21-46); MONOCYTES ABSOLUTE AUTO 0.65 K/mm3 (0.16-1.47); MONOCYTES PERCENT AUTO 5 % (4-13); Mean Corpuscular HGB 32.7 pg (26.0-34.0); Mean Corpuscular HGB Conc 33.7 g/dL (31.5-36.5); Mean Corpuscular Volume 97 fL (80-100); Mean Platelet Volume 9.4 fL (9.1-12.4); NEUTROPHILS ABSOLUTE AUTO 10.58 K/mm3 (1.96-9.15); NEUTROPHILS PERCENT AUTO 84 % (41-73); Platelet Count 300 K/mm3 (150-400); RDW Coefficient Variation 14.2 % (11.7-14.2); RDW Standard Deviation 51.3 fL (35.1-46.3); Red Blood Cell Count 4.34 M/mm3 (4.30-5.90); White Blood Cell Count 12.58 K/mm3 (4.00-11.30)
[2022-10-07 06:33] LABS: Albumin, Blood 4.1 g/dL (3.4-5.0); Bilirubin, Total 1.1 mg/dL (0.1-1.0); Bun/Creatinine Ratio 26.3 (12.0-20.0); Calcium, Blood 9.4 mg/dL (8.5-10.1); Creatinine, Blood 1.18 mg/dL (0.60-1.20); Globulin, Blood 4.1 g/dL (2.2-4.0); Potassium, Blood 4.2 mmol/L (3.5-5.5); Total Protein, Blood 8.2 g/dL (6.4-8.2)
--- NOTE | 2022-10-07 06:37 | NUR ---
SHIFT SUMMARY PATIENT BECAME MORE ALERT TOWARDS END OF SHIFT. CONVERSING WITH STAFF AND BECOMING MORE AGITATED. REQUESTING TO GET OOB TO USE THE BATHROOM-ATTEMPTED BEDPAN AND URINAL, BUT PATIENT REFUSED TO GO. ATTEMPTED TO STAND/PIVOT PATIENT TO [facility]-REQUIRED TWO PERSON ASSIST AND WAS VERY WEAK, UNSTEADY, AND WOULD NOT FOLLOW DIRECTION FROM STAFF FOR SAFE AMBULATION. EDUCATED PATIENT THAT THE URINAL AND BEDPAN WOULD BE USED UNTIL SAFE AMBULATION CAN BE ACHIEVED. PATIENT BECAME INCREASINGLY AGITATED-PULLED OFF BP CUFF, SPO2 MONITOR, IV, AND REPEATEDLY ATTEMPTED TO EXIT BED WITHOUT STAFF. PATIENT REQUIRED RESTRAINTS TO REMAIN SAFELY IN BED. BP MEDICATED WITH CLONIDINE 0.1MG PT ONCE. SEROQUEL PER EMAR THIS AM FOR INCREASED AGITATION. NO OTHER CHANGES DURING SHIFT.
--- NOTE | 2022-10-07 08:30 | NUR ---
ASSUMED CARE: REPORT RECEIVED FROM NEDA Alicia RN. ASSUMED CARE OF THIS PT AT APPROX 0700. ON ASSESSMENT, THE PT IS AWAKE & TRACKING THIS RN W/ EYES. HE IS ANSWERING SOME YES/ NO QUESTIONS BY NODDING HEAD BUT ANSWERS "NO" CONSISTENTLY DESPITE THIS RN REPHRASING QUESTIONS IN DIFFERENT WAYS. HE DOES NOT FOLLOW DIRECTIONS & BECOMES AGITATED, PULLING AT RESTRAINTS & THRASHING IN BED WHEN THIS RN DISCUSSES CARE MEASURES, REPEATEDLY MOUTHING "F*CK YOU" AT THIS RN. LS DIM IN BASES, PT ON RA W/ O2 SATS > 92%. MONITOR SHOWS SR-ST W/ HR 80-100s, HTN IMPROVING W/ SCHEDULED AM MEDS. WELL-ESTABLISHED PEG TUBE IN PLACE TO LUQ, FLUSHES EASILY ON ASSESSMENT, PT SHAKES HEAD "NO" WHEN ASKED IF NAUSEOUS. HE HAS NOT VOIDED URINE SINCE ADMISSION, REFUSES URINAL. PER REPORT, PRIOR STAFF ATTEMPTED TO GET PT OOB FOR BRP & WERE UNABLE R/T SAFETY ISSUES W/ PT NOT FOLLOWING DIRECTIONS & BECOMING IMPULSIVE/ AGITATED WHILE UNRESTRAINED. ATTENDS IN PLACE, CDI. NO BM SINCE ADMIT, BT HYPERACTIVE. SKIN CONDITION OVERALL INTACT, PT REPOSITIONS SELF FREQUENTLY. REDENNED AREAS TO COCCYX & SURROUNDING PEG TUBE SECUREMENT DEVICE. PT HAS NO IV ACCESS HE REMOVED PIV LAST NIGHT, PRIOR STAFF UNABLE TO START NEW PIV PT UNCOOPERATIVE W/ CARE MEASURES. NICARDIPINE NEVER STARTED PER EMAR, WILL ADDRESS W/ PROVIDER THIS AM. WILL CONTINUE TO MONITOR & UPDATE NEEDED.
--- NOTE | 2022-10-07 11:14 | NUR ---
DR COPELAND: PROVIDER AT BEDSIDE TO EVAL PT. HE WOULD LIKE THE PT TO RECEIVE AN MRI TO DETERMINE IF THE CEREBRAL EDEMA HAS CHANGED. DISCUSSED THAT THE PT HAS NO IV ACCESS AT THIS TIME & THAT NICARDIPINE WAS NOT STARTED R/T THIS ISSUE. BP IMPROVED SINCE AM MICROARRAY ANALYST, ELEVATED IF PT AGITATED. PROVIDER STS HE MAY CHANGE PT's STATUS AFTER MRI RESULTED. NO OTHER CHANGES AT THIS TIME.
--- NOTE | 2022-10-07 17:00 | NUR ---
UPDATE: THE PT's FRIENDS, DANIEL & ADRIANA, ARE AT BEDSIDE THIS AFTERNOON. THE PT RECOGNIZES THEM BOTH & IS REQUESTING THEIR HELP W/ VARIOUS TASKS. DANIEL & ADRIANA HELP HIM AROUND HIS HOUSE ON A REGULAR BASIS BUT ARE UNABLE TO PROVIDE HELP EVERY DAY. THE PT HAS ALSO BEEN MUCH MORE COOPERATIVE W/ STAFF THIS AFTERNOON. HE IS NOT CURSING & HAS BEEN SOMEWHAT REDIRECTABLE & FOLLOWING DIRECTIONS, ALTHOUGH DOES STILL NEED FREQUENT REMINDERS.
--- NOTE | 2022-10-07 18:30 | NUR ---
SHIFT SUMMARY: THE PT HAS ONCE AGAIN INCREASED IN AGITATION & IS NO LONGER REDIRECTABLE. HE HAS BEGUN TO CURSE AT STAFF & PULL AT LINES/ CORDS. THIS RN HAS REMINDED THE PT THAT RESTRAINTS WILL NEED TO BE PLACED ON BILAT WRISTS AGAIN IF HE CANNOT STOP PULLING AT LINES, TO WHICH HE REPLIES "F*CK OFF, YOU DON'T KNOW ANYTHING" & THEN BEGINS TO THRASH IN BED, SLAMMING ARMS DOWN REPEATEDLY & CONTINUING TO PULL OFF LINES/ CORDS. LS DIM IN BASES, PT ON RA W/ O2 SATS > 92%. MONITOR SHOWS SR W/ HR 70-80s, HTN IMPROVED THIS AFTERNOON BUT INCREASED AGAIN W/ WORSENING AGITATION. PT NPO, MEDS GIVEN VIA PEG TUBE TO LUQ, OTHERWISE CLAMPED. PT's , PACO, STS THAT HE TAKES ALL MEDICATIONS VIA THE PEG TUBE AT HOME BUT HAS BEEN ABLE TO TOLERATE SOME PO INTAKE WELL. PT CONTINENT OF BLADDER, VOIDED THIS SHIFT. SKIN CONDITION OVERALL FRAGILE, MEPILEX PLACED TO RIGHT ELBOW WHERE ABRASION NOTED BLEEDING. WILL CONTINUE TO MONITOR & REPORT OFF TO ONCOMING RN.
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
[2022-10-08 06:41] LABS: BASOPHILS ABSOLUTE AUTO 0.05 K/mm3 (0.00-0.23); BASOPHILS PERCENT AUTO 1 % (0-2); EOSINOPHILS ABSOLUTE AUTO 0.09 K/mm3 (0.00-0.68); EOSINOPHILS PERCENT AUTO 1 % (0-6); Hematocrit 43.7 % (37.0-53.0); Hemoglobin 14.8 g/dL (13.5-17.5); IMMATURE GRAN ABSOLUTE AUTO 0.04 K/mm3 (0.00-0.10); IMMATURE GRAN PERCENT AUTO 0 % (0-1); LYMPHOCYTES ABSOLUTE AUTO 1.43 K/mm3 (0.84-5.20); LYMPHOCYTES PERCENT AUTO 14 % (21-46); MONOCYTES ABSOLUTE AUTO 0.74 K/mm3 (0.16-1.47); MONOCYTES PERCENT AUTO 7 % (4-13); Mean Corpuscular HGB 33.6 pg (26.0-34.0); Mean Corpuscular HGB Conc 33.9 g/dL (31.5-36.5); Mean Corpuscular Volume 99 fL (80-100); Mean Platelet Volume 9.4 fL (9.1-12.4); NEUTROPHILS ABSOLUTE AUTO 7.69 K/mm3 (1.96-9.15); NEUTROPHILS PERCENT AUTO 77 % (41-73); Platelet Count 278 K/mm3 (150-400); RDW Coefficient Variation 14.4 % (11.7-14.2); RDW Standard Deviation 52.9 fL (35.1-46.3); Red Blood Cell Count 4.41 M/mm3 (4.30-5.90); White Blood Cell Count 10.04 K/mm3 (4.00-11.30)
[2022-10-08 06:56] LABS: Bun/Creatinine Ratio 25.5 (12.0-20.0); Calcium, Blood 9.4 mg/dL (8.5-10.1); Creatinine, Blood 1.37 mg/dL (0.60-1.20); Potassium, Blood 3.9 mmol/L (3.5-5.5)
--- NOTE | 2022-10-08 07:29 | NUR ---
Received report from Noc RN. Patient resing in bed and awakens to verbal stimuli and opens eye and does not answer any questions or responds in any way. He is on RA and sats 98%. He has mepelex padded dressing to right elbow. Patient has no IV access and refused rn shift mgr request to place one and did not want to talk with me when i asked. He is in bilateral soft wrist restraints and ricky. He is SR 60 and hypertensive 197 systolic.
--- NOTE | 2022-10-08 09:30 | NUR ---
Patient slightly agitated and wanted gown off and then he calmed. He is still pulling at restraints, SpO2 sensor and ECG leads. He remains on RA and sats >90%. Dr Leonard by and make medical no tele status.
--- NOTE | 2022-10-08 12:00 | NUR ---
Removed restraints and left ricky in place and less agitated. removed all leads and he has been resting. He allowed all po meds this am per tube and remains hypertensive when awake. he is being trasferred to medical floor special care unit for closer observation. Gave him quick towel bath and cleaned stoma and hpper half with some daya care. Will call report.
--- NOTE | 2022-10-08 13:24 | NUR ---
Ethics consult order received and processed. Medical history, social constellation, and case notes reviewed. It is reported that the principal is unable to engage in direction of care conversations. It is also indicated that he is clinically non-adherent. If the principal is found to be in verified state of incapacitation, then per statutory requirement, his legal spouse, officially seperated or otherwise, would be the default substitute decision maker. If she is unwilling or unable to satisfy this role, then the majority of his adult children would bear this obligation. If he has only one adult child, then this same alliance party would function as the proxy, until the confusion resolves, or indefinitely if his condition does not improve. Thank you for this consult. Rudolph Hector, PhD, JOSEPH
--- NOTE | 2022-10-08 14:05 | NUR ---
TRANSFER NOTE PT TRANSFERRED FROM THE ICU, REPORT RECEIVED FROM ELENA CASTRO. PT IS RESTING COMFORTABLY AT THIS TIME, CALL LIGHT HAS BEEN PLACED WITHIN REACH. HE HAS BEEN PLACED ON CAMERA VIA REMOTE MONITORING. SAMANTHA VEST IN PLACE.
--- NOTE | 2022-10-08 15:36 | NUR ---
PROVIDER NOTIFIED OF PT'S BP OF 206/99. HE SAID HE WILL REVIEW ORDERS.
--- NOTE | 2022-10-08 16:05 | NUR ---
Spoke to pt's estranged Diana today, and she reports she has a copy of pt's Advanced Directive. She states she will bring it to the hospital either tonight or in the morning. She states she has never reviewed his advanced directive. She does state she knows for sure he would not want to be on life support custodial, and his states she moved out approx 3 months ago after being pt's CG for 3 years. She states he began insisting he can care for himself even though he is becoming less able. She states she is currently working hospice admitting clerk to pay the bills for both of them. She states working hospice admitting clerk is also a barrier to being able to care for him. Will review pt's current plan of care as well as advance directive tomorrow.
--- NOTE | 2022-10-08 18:29 | NUR ---
SHIFT SUMMARY PT TRANSFERRED FROM THE ICU THIS AFTERNOON, NOT SHORTLY AFTER HE GOT HERE, THEY TOOK HIM FOR A CT SCAN. SHORTLY AFTER THAT, HE WENT FOR AN MRI. HE CURRENTLY HAS A FRIEND AT THE BS THAT HELP THE PT COOPERATE. SO FAR, HE HAS COMPLIED WITH TREATMENT WITH A LITTLE CONVINCING. HE IS AOX2 RIGHT NOW, ABLE TO ANSWER QUESTIONS MORE THE SHIFT GOES ON. HE IS ON BEDREST WITH A SAMANTHA IN PLACE. MEDICATIONS TO BE GIVEN THROUGH HIS PEG TUBE AND ORDERS FOR FEEDING HAVE BEEN PROVIDED, JUST WAITING ON THE FOOD. WILL REPORT TO ONCOMING NURSE.
--- NOTE | 2022-10-09 04:12 | NUR ---
SHIFT UNREMARKABLE. PATIENT TOOK 2100 MEDICATIONS WITHOUT DIFFICULTY THEN SLEPT THROUGH MOST OF REMAINDER OF SHIFT. RESTRAINTS REMOVED AROUND 0000 DUE TO PATIENT IMPROVEMENT IN IMPULSIVENESS AND COOPERATION. PATIENT HAS BEEN MOSTLY PLEASANT AND AGREEABLE THROUGH SHIFT. SAMANTHA VEST LEFT IN PLACE ALTHOUGH FREE AND UNTIED TO PREVENT PATIENT FROM AWAKENING, MOBILITY AND FREEDOM NOT RESTRICTED. BED ALARM ON. CALL LIGHT IN REACH.
[2022-10-09 05:33] LABS: Magnesium, Blood 1.9 mg/dL (1.6-2.4)
[2022-10-09 05:44] LABS: Calcium, Blood 9.3 mg/dL (8.5-10.1); Creatinine, Blood 1.67 mg/dL (0.60-1.20); Phosphorus, Blood 4.1 mg/dL (2.5-4.9); Potassium, Blood 3.9 mmol/L (3.5-5.5)
--- NOTE | 2022-10-09 12:59 | NUR ---
Ethics update: advance care planning instrument received. Please see addendum to previous consult note for reference and detail.
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
--- NOTE | 2022-10-09 18:43 | NUR ---
PATIENT A/O TO SELF ONLY TODAY. TUBE FEEDS STARTED AND PATIENT IS TOLERATING WELL. PLACED IN WRIST RESTRAINTS AFTER BEING COMBATIVE WITH STAFF, PULLING OUT HIS IV AND PULLING IN PEG TUBE CAUSING IT TO BLEED. PATIENT DID WELL WHEN POWERGLIDE WAS PLACED AND NS STARTED AT 125ML/HR FOR [address] CAME BY AFTER COMBATIVE EPISODE AND WILL ATTEMPT TO SEE PATIENT AGAIN TOMORROW. VSS, ON RA. BLOOD PRESSURE HAS IMPROVED WITH SCHEDULED MEDS. WAS BY THIS EVENING AND STATED THAT SHE WORKS DURING THE DAY AND WOULD LIKE A CALL FROM THE DOCTOR TOMORROW SINCE SHE IS UNABLE TO BE HERE WHEN HE ROUNDS.
--- NOTE | 2022-10-10 04:17 | NUR ---
PATIENT UNCOMFORTABLE AND BLADDER SCANNED AT [address] MEREDITH ORDERED STRAIGHT CATH X ONE WITH RECHECK Q8. PATIENT DID VOID WITH RESIDUAL OF 353 mL. HOLDING OFF ON STRAIGHT CATH RESIDUAL WITH PATIENT AGITATED AND TRYING TO KICK STAFF. IN WRIST RESTRAINTS. WCTM.
--- NOTE | 2022-10-10 04:53 | NUR ---
SHIFT SUMMARY PATIENT AXO TO SELF AND NON-VERBAL USING HEAD NODS FOR YES/NO QUESTIONS. CONTINUOUS PEG TUBE JEVITY FEEDINGS AT 35mL/HR. NS INFUSED AT 125mL/HR X ONE COMPLETED. POWERGLIDE VICKIE INTACT AND POSITIONAL. IV ACYCLOVIR 800 MG STARTED. HYPERTENSIVE FIRST SET OF VITALS AND WNL ON SECOND SET. WHEN ASKED IF IN PAIN NODDED YES AND LIQUID OXYCODONE 10 MG GIVEN PER EMAR VIA PEG TUBE. WRIST RESTRAINTS PER ORDER. PATIENT TRIED TO KICK STAFF X THREE EVENTS LATER IN SHIFT. CAMERA MONITOR REPORTED SWINGING LEGS OOB X FOUR OR OVER RAIL. BLADDER SCANNED AT 857 mL WHEN PATIENT WAS UNFORTABLE BUT NOT IN PAIN. VOIDED 504mL SHORTLY AFTERWARDS JUST PRIOR TO STRAIGHT CATH PER ORDER. CALL LIGHT IN REACH. BED IN LOWEST POSITION. WILL CONTINUE TO MONITOR UNTIL DAY SHIFT NURSE ASSUMES CARE.
[2022-10-10 05:34] LABS: Bun/Creatinine Ratio 21.6 (12.0-20.0); Calcium, Blood 8.9 mg/dL (8.5-10.1); Creatinine, Blood 2.32 mg/dL (0.60-1.20); Magnesium, Blood 1.9 mg/dL (1.6-2.4); Phosphorus, Blood 4.2 mg/dL (2.5-4.9); Potassium, Blood 3.4 mmol/L (3.5-5.5)
[2022-10-10 06:27] LABS: BASOPHILS ABSOLUTE AUTO 0.03 K/mm3 (0.00-0.23); BASOPHILS PERCENT AUTO 0 % (0-2); EOSINOPHILS PERCENT AUTO 1 % (0-6); Hematocrit 37.7 % (37.0-53.0); IMMATURE GRAN ABSOLUTE AUTO 0.04 K/mm3 (0.00-0.10); IMMATURE GRAN PERCENT AUTO 0 % (0-1); LYMPHOCYTES ABSOLUTE AUTO 0.89 K/mm3 (0.84-5.20); LYMPHOCYTES PERCENT AUTO 7 % (21-46); MONOCYTES ABSOLUTE AUTO 0.72 K/mm3 (0.16-1.47); MONOCYTES PERCENT AUTO 6 % (4-13); Mean Corpuscular HGB 34.1 pg (26.0-34.0); Mean Corpuscular HGB Conc 34.5 g/dL (31.5-36.5); Mean Corpuscular Volume 99 fL (80-100); NEUTROPHILS ABSOLUTE AUTO 10.88 K/mm3 (1.96-9.15); NEUTROPHILS PERCENT AUTO 86 % (41-73); RDW Coefficient Variation 14.1 % (11.7-14.2); RDW Standard Deviation 50.9 fL (35.1-46.3); Red Blood Cell Count 3.81 M/mm3 (4.30-5.90); White Blood Cell Count 12.66 K/mm3 (4.00-11.30)
[2022-10-10 06:32] LABS: Mean Platelet Volume 10.3 fL (9.1-12.4)
[2022-10-10 07:13] LABS: Platelet Count 284 K/mm3 (150-400)
--- NOTE | 2022-10-10 14:00 | NUR ---
1140- X2 RNS IN PT'S ROOM AND REMOVED BILATERAL NON-VIOLENT RESTRAINTS FOR ROM, CHANGING POSITION, AND SIT ON EDGE OF BED.
--- NOTE | 2022-10-10 14:02 | NUR ---
1350- REMOVED RESTRAINTSFOR ROM AND REPOSITIONING IN BED.
--- NOTE | 2022-10-10 18:42 | NUR ---
SHIFT ASSESSMENT- PT INTERMITTENTLY AGGITATED THIS SHIFT. RESTRAINTS WERE REMOVED MULTIPLE TIMES TO ALLOW FOR ROM. PT STILL ATTEMPTS TO PULL/TUG HIS G-TUBE. PT DID STAND UP AND USE THE URINAL THIS SHIFT. PT ALSO USED THE BSC AND HAD A BM. PT WAS NAUSEOUS AND FEEDINGS WERE STOPPED FOR 1 HR. PT WAS AT GOAL (45ML/HR). RN REDUCED FEEDINGS TO 35ML/HR DUE TO NAUSEA. WILL INCREASE TOLERATED.
[2022-10-10] MEDS ORDERED: ACET500 PT (23:34)
[2022-10-10] MEDS ORDERED: OMEP20ER PT (23:38)
[2022-10-10] MEDS ORDERED: OXYC1L PT (23:39)
[2022-10-10] MEDS ORDERED: QUET100 PT (23:40)
[2022-10-10] MEDS ORDERED: MULVITA PT (23:41)
[2022-10-10] MEDS ORDERED: TIZA4 PT (23:41)
[2022-10-10] MEDS ORDERED: LOSA25 PT (23:41)
[2022-10-10] MEDS ORDERED: B-1100 M1 PT (23:42)
[2022-10-10] MEDS ORDERED: FOLI1 PT (23:42)
[2022-10-11 06:02] LABS: BASOPHILS ABSOLUTE AUTO 0.02 K/mm3 (0.00-0.23); BASOPHILS PERCENT AUTO 0 % (0-2); EOSINOPHILS ABSOLUTE AUTO 0.18 K/mm3 (0.00-0.68); EOSINOPHILS PERCENT AUTO 2 % (0-6); Hematocrit 36.5 % (37.0-53.0); Hemoglobin 12.2 g/dL (13.5-17.5); IMMATURE GRAN ABSOLUTE AUTO 0.03 K/mm3 (0.00-0.10); IMMATURE GRAN PERCENT AUTO 0 % (0-1); LYMPHOCYTES ABSOLUTE AUTO 1.01 K/mm3 (0.84-5.20); LYMPHOCYTES PERCENT AUTO 10 % (21-46); MONOCYTES ABSOLUTE AUTO 0.59 K/mm3 (0.16-1.47); MONOCYTES PERCENT AUTO 6 % (4-13); Mean Corpuscular HGB 33.3 pg (26.0-34.0); Mean Corpuscular HGB Conc 33.4 g/dL (31.5-36.5); Mean Corpuscular Volume 100 fL (80-100); Mean Platelet Volume 9.7 fL (9.1-12.4); NEUTROPHILS ABSOLUTE AUTO 8.01 K/mm3 (1.96-9.15); NEUTROPHILS PERCENT AUTO 81 % (41-73); Platelet Count 241 K/mm3 (150-400); RDW Standard Deviation 51.6 fL (35.1-46.3); Red Blood Cell Count 3.66 M/mm3 (4.30-5.90); White Blood Cell Count 9.84 K/mm3 (4.00-11.30)
[2022-10-11 06:23] LABS: Albumin/Globulin Ratio 0.9 (0.8-1.8); Bilirubin, Total 0.4 mg/dL (0.1-1.0); Bun/Creatinine Ratio 24.1 (12.0-20.0); Creatinine, Blood 1.45 mg/dL (0.60-1.20); Globulin, Blood 3.5 g/dL (2.2-4.0); Potassium, Blood 3.6 mmol/L (3.5-5.5); Total Protein, Blood 6.5 g/dL (6.4-8.2)
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
[2022-10-12 05:39] LABS: BASOPHILS ABSOLUTE AUTO 0.03 K/mm3 (0.00-0.23); BASOPHILS PERCENT AUTO 0 % (0-2); EOSINOPHILS ABSOLUTE AUTO 0.16 K/mm3 (0.00-0.68); EOSINOPHILS PERCENT AUTO 2 % (0-6); Hematocrit 37.1 % (37.0-53.0); Hemoglobin 12.2 g/dL (13.5-17.5); IMMATURE GRAN ABSOLUTE AUTO 0.02 K/mm3 (0.00-0.10); IMMATURE GRAN PERCENT AUTO 0 % (0-1); LYMPHOCYTES ABSOLUTE AUTO 1.17 K/mm3 (0.84-5.20); LYMPHOCYTES PERCENT AUTO 13 % (21-46); MONOCYTES ABSOLUTE AUTO 0.75 K/mm3 (0.16-1.47); MONOCYTES PERCENT AUTO 8 % (4-13); Mean Corpuscular HGB 33.7 pg (26.0-34.0); Mean Corpuscular HGB Conc 32.9 g/dL (31.5-36.5); Mean Corpuscular Volume 103 fL (80-100); Mean Platelet Volume 9.8 fL (9.1-12.4); NEUTROPHILS ABSOLUTE AUTO 6.94 K/mm3 (1.96-9.15); NEUTROPHILS PERCENT AUTO 77 % (41-73); Platelet Count 221 K/mm3 (150-400); RDW Standard Deviation 53.3 fL (35.1-46.3); Red Blood Cell Count 3.62 M/mm3 (4.30-5.90); White Blood Cell Count 9.07 K/mm3 (4.00-11.30)
--- NOTE | 2022-10-12 05:44 | NUR ---
PT IS A&O TO SELF, 2 ASSIST TO BSC, RA, VSS, PEG TUBE PATENT INFUSING JEVITY 1.5 TOLERATING 45ML/HR W/O COMPLAINTS OF NAUSEA OVERNIGHT, NO COMPLAINTS OF PAIN OR ACUTE OVERNIGHT EVENTS
[2022-10-12 06:03] LABS: Albumin, Blood 3.1 g/dL (3.4-5.0); Albumin/Globulin Ratio 0.9 (0.8-1.8); Bilirubin, Total 0.3 mg/dL (0.1-1.0); Bun/Creatinine Ratio 15.2 (12.0-20.0); Calcium, Blood 8.7 mg/dL (8.5-10.1); Creatinine, Blood 2.23 mg/dL (0.60-1.20); Globulin, Blood 3.6 g/dL (2.2-4.0); Total Protein, Blood 6.7 g/dL (6.4-8.2)
--- NOTE | 2022-10-12 13:38 | NUR ---
PATEINT FEELING LIKE A BREATH COULDN'T BE TAKEN. OSTOMY HAD ELSY THICK CRUST PLUG. SPOKE WITH PROVIDER. ATTEMPTED TO CLEAN AROUND BUT COULDN'T GET THE PLUG OUT WITHOUT RISK OF PUSHING IN. CALLED RT. RT CAME, SUCTIONS AND MANUALLY REMOVED PLUG WITH TWEEZER. PATIENT HAS GREEN/CARREON SPUTUM.
--- NOTE | 2022-10-12 16:58 | NUR ---
PATIENT SLEEPY THIS SHIFT. DID NOT WANT TO INTERACT MUCH. PT ATTEMPTED TO WORK WITH PATIENT BUT HE DID NOT RESPOND TO THEM WITH INTEREST. PATIENT HAD A MUCOUS PLUG IN STOMA THIS SHIFT. A CULTURE OF THE GREEN/YELLOW SPUTUM WAS OBTAINED, RESULTS STILL PENDING. A CHEST XRAY WAS ALSO TAKE THIS SHIFT TO CHECK FOR PNEUMONIA. TUBE FEED IS RUNNING AT 45ML/HR WITH 85MG/HOUR FLUSH. BAG CHANGED AT 1630. PATIENT LIKES TO SIT UP ON EDGE OF BED AND NODS HEAD WHEN ASKED IF THIS POSITION HELPS HIM BREATH EAISER. SA02 IS NORMAL WITH NO O2 IN PLACE. LUMBAR PUNCTURE AND LABS FROM THIS STILL NEED COLLECTION. TSH WAS HIGH THIS SHIFT- SEE LAB REPORT.
--- NOTE | 2022-10-13 06:01 | NUR ---
PT IS A&O TO SELF SLOW TO RESPOND TO QUESTIONS WITH HEAD NODS, UP WITH 1-2 TO BSC OR URINAL, PT DOES NOT USE CALL LIGHT OR MAKE NEEDS KNOWN. JEVITY 1.5 AT 45ML INFUSING NO COMPLAINTS OF GI DISCOMFORT. PT WOULD NOT ALLOW THIS NURSE TO DRAW LABS FROM LINE THIS AM, REFUSED TO MOVE ARM AND ATTEMPTED TO SWING ARM IN WRITERS DIRECTION. VSS, RA, NO ACUTE OVERNIGHT EVENTS
[2022-10-13 09:53] LABS: BASOPHILS ABSOLUTE AUTO 0.04 K/mm3 (0.00-0.23); BASOPHILS PERCENT AUTO 1 % (0-2); EOSINOPHILS ABSOLUTE AUTO 0.13 K/mm3 (0.00-0.68); EOSINOPHILS PERCENT AUTO 2 % (0-6); Hematocrit 37.5 % (37.0-53.0); Hemoglobin 12.7 g/dL (13.5-17.5); IMMATURE GRAN ABSOLUTE AUTO 0.01 K/mm3 (0.00-0.10); IMMATURE GRAN PERCENT AUTO 0 % (0-1); LYMPHOCYTES ABSOLUTE AUTO 0.96 K/mm3 (0.84-5.20); LYMPHOCYTES PERCENT AUTO 11 % (21-46); MONOCYTES ABSOLUTE AUTO 0.61 K/mm3 (0.16-1.47); MONOCYTES PERCENT AUTO 7 % (4-13); Mean Corpuscular HGB 33.4 pg (26.0-34.0); Mean Corpuscular HGB Conc 33.9 g/dL (31.5-36.5); Mean Corpuscular Volume 99 fL (80-100); Mean Platelet Volume 10.2 fL (9.1-12.4); NEUTROPHILS PERCENT AUTO 80 % (41-73); Platelet Count 259 K/mm3 (150-400); RDW Coefficient Variation 13.5 % (11.7-14.2); RDW Standard Deviation 49.6 fL (35.1-46.3); White Blood Cell Count 8.55 K/mm3 (4.00-11.30)
[2022-10-13 09:57] LABS: Albumin, Blood 3.4 g/dL (3.4-5.0); Albumin/Globulin Ratio 0.8 (0.8-1.8); Bilirubin, Total 0.4 mg/dL (0.1-1.0); Bun/Creatinine Ratio 16.4 (12.0-20.0); Calcium, Blood 9.2 mg/dL (8.5-10.1); Creatinine, Blood 2.5 mg/dL (0.60-1.20); Globulin, Blood 4.2 g/dL (2.2-4.0); Potassium, Blood 4.2 mmol/L (3.5-5.5); Total Protein, Blood 7.6 g/dL (6.4-8.2)
[2022-10-13 12:40] LABS: Source, Urine Suprapubic Cath
[2022-10-13 12:56] LABS: Appearance, Urine Clear (Clear); Bilirubin, Urine Neg (Neg); Blood, Urine Neg (Neg); Color, Urine Yellow (P-Yellow); Glucose Qualitative, Urine Neg (Neg); Ketones, Urine Neg (Neg); Leukocyte Esterase, Urine Neg (Neg); Nitrite, Urine Neg (Neg); Protein, Urine 1+ (Neg); Urobilinogen, Urine NORM (Normal)
[2022-10-13 15:25] LABS: Eosinophils-Raw #,Urine 4; White Blood Cells Urine 0-2 /hpf (0-5)
--- NOTE | 2022-10-13 16:49 | NUR ---
SHIFT SUMMARY PT AxOx2-3 WITH INTERMITTENT CONFUSION/FORGETFULNESS. PT'S MENTATION HAS IMPROVED THROUGHOUT DURATION OF THIS DAY SHIFT. PT WAS REFUSING CARE THIS AM AND UNABLE TO COMMUNICATE. LATER IN THE AFTERNOON THE PATIENT WAS AGREEABLE TO CARE, FOLLOWING DIRECTIONS MUCH BETTER, NODDING HEAD YES/NO AND BEGAN TALKING WHILE COVERING TRACH STOMA. FAMILY IN ROOM THIS SHIFT SEEMED TO LIFT PATIENT'S SPIRITS. PT IS ON CAMERA/BED ALARM FOR IMPULSIVE BEHAVIOR. PT IS CURRENTLY SITTING UP IN BED WITH CALL LIGHT IN REACH. PT DENIES PAIN. VITALS REVIEWED.
--- NOTE | 2022-10-14 04:06 | NUR ---
Patient resting in bed, no significant events overnight.
[2022-10-14 06:26] LABS: BASOPHILS ABSOLUTE AUTO 0.03 K/mm3 (0.00-0.23); BASOPHILS PERCENT AUTO 0 % (0-2); EOSINOPHILS ABSOLUTE AUTO 0.14 K/mm3 (0.00-0.68); EOSINOPHILS PERCENT AUTO 2 % (0-6); Hematocrit 37.1 % (37.0-53.0); Hemoglobin 12.4 g/dL (13.5-17.5); IMMATURE GRAN ABSOLUTE AUTO 0.01 K/mm3 (0.00-0.10); IMMATURE GRAN PERCENT AUTO 0 % (0-1); LYMPHOCYTES ABSOLUTE AUTO 1.14 K/mm3 (0.84-5.20); LYMPHOCYTES PERCENT AUTO 17 % (21-46); MONOCYTES ABSOLUTE AUTO 0.63 K/mm3 (0.16-1.47); MONOCYTES PERCENT AUTO 9 % (4-13); Mean Corpuscular HGB 33.2 pg (26.0-34.0); Mean Corpuscular HGB Conc 33.4 g/dL (31.5-36.5); Mean Corpuscular Volume 100 fL (80-100); Mean Platelet Volume 10.6 fL (9.1-12.4); NEUTROPHILS ABSOLUTE AUTO 4.75 K/mm3 (1.96-9.15); NEUTROPHILS PERCENT AUTO 71 % (41-73); Platelet Count 252 K/mm3 (150-400); RDW Coefficient Variation 13.6 % (11.7-14.2); RDW Standard Deviation 50.8 fL (35.1-46.3); Red Blood Cell Count 3.73 M/mm3 (4.30-5.90)
[2022-10-14 06:50] LABS: Albumin, Blood 3.4 g/dL (3.4-5.0); Albumin/Globulin Ratio 0.8 (0.8-1.8); Bilirubin, Total 0.4 mg/dL (0.1-1.0); Bun/Creatinine Ratio 19.2 (12.0-20.0); Calcium, Blood 9.4 mg/dL (8.5-10.1); Creatinine, Blood 1.82 mg/dL (0.60-1.20); Globulin, Blood 4.2 g/dL (2.2-4.0); Potassium, Blood 4.2 mmol/L (3.5-5.5); Total Protein, Blood 7.6 g/dL (6.4-8.2)
--- NOTE | 2022-10-14 19:13 | NUR ---
PT ALERT AND ORIENTED X2-3. PT FORGETS LIMITATIONS AND TRYS TO GET UP ALONE . PT FREQUENTLY GAZES OFF. PT AMBULATED TO BATHROOM WITH WALKER AND STANDBY ASSIST. PT SEEMS TO FORGET WHAT HE IS DOING WHILE HE IS DOING IT. PT CAN BE REORIENTED. CONTINUOUS TUBE FEEDING THROUGH PEG TUBE. JEVITY 1.5. WITH WATER FLUSH HOURLY. BED ALARM ON AND CALL LIGHT WITHIN REACH.
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
[2022-10-15 06:09] LABS: BASOPHILS ABSOLUTE AUTO 0.04 K/mm3 (0.00-0.23); BASOPHILS PERCENT AUTO 1 % (0-2); EOSINOPHILS ABSOLUTE AUTO 0.14 K/mm3 (0.00-0.68); EOSINOPHILS PERCENT AUTO 2 % (0-6); Hematocrit 37.5 % (37.0-53.0); Hemoglobin 12.3 g/dL (13.5-17.5); IMMATURE GRAN ABSOLUTE AUTO 0.01 K/mm3 (0.00-0.10); IMMATURE GRAN PERCENT AUTO 0 % (0-1); LYMPHOCYTES ABSOLUTE AUTO 1.43 K/mm3 (0.84-5.20); LYMPHOCYTES PERCENT AUTO 22 % (21-46); MONOCYTES ABSOLUTE AUTO 0.59 K/mm3 (0.16-1.47); MONOCYTES PERCENT AUTO 9 % (4-13); Mean Corpuscular HGB 33.2 pg (26.0-34.0); Mean Corpuscular HGB Conc 32.8 g/dL (31.5-36.5); Mean Corpuscular Volume 101 fL (80-100); Mean Platelet Volume 10.4 fL (9.1-12.4); NEUTROPHILS ABSOLUTE AUTO 4.17 K/mm3 (1.96-9.15); NEUTROPHILS PERCENT AUTO 65 % (41-73); Platelet Count 267 K/mm3 (150-400); RDW Coefficient Variation 13.7 % (11.7-14.2); RDW Standard Deviation 51.3 fL (35.1-46.3); Red Blood Cell Count 3.71 M/mm3 (4.30-5.90); White Blood Cell Count 6.38 K/mm3 (4.00-11.30)
[2022-10-15 06:41] LABS: Albumin, Blood 3.4 g/dL (3.4-5.0); Albumin/Globulin Ratio 0.8 (0.8-1.8); Bilirubin, Total 0.4 mg/dL (0.1-1.0); Bun/Creatinine Ratio 18.1 (12.0-20.0); Calcium, Blood 9.3 mg/dL (8.5-10.1); Creatinine, Blood 1.77 mg/dL (0.60-1.20); Globulin, Blood 4.3 g/dL (2.2-4.0); Total Protein, Blood 7.7 g/dL (6.4-8.2)
--- NOTE | 2022-10-15 18:28 | NUR ---
SHIFT SUMMARY PT WITHDRAWN AND HAD FLAT EXPRESSIONS THROUGHOUT DAY. PT MOSTLY COMMUNICATED BY SHAKING OR NODDING HEAD. DURING AFTERNOON PT MORE PLEASANT AND SMILLED OCCASIONALLY. RESTRAINTS REMOVED IN AM. PT NON COMBATIVE BUT DIFFICULT TO REDIRECT. SPLIT GUAZE UNDER PEG TUBE CHANGED TODAY, 10/05. AREA UNDER TUBE IS RED AND EXCORIATED. A FOUL SMELL AND SCANT AMOUNT OF OFF WHITE DRAINAGE NOTED. CLEANED AND NEW SPLIT GUAZE PLACED. BED IN LOWEST POSITION AND CALL LIGHT IN REACH.
--- NOTE | 2022-10-16 03:05 | NUR ---
Patient resting in bed, no significant events overnigt.
[2022-10-16 14:10] LABS: HSV-1 DNA Negative (Negative); HSV-2 DNA Negative (Negative)
--- NOTE | 2022-10-16 19:44 | NUR ---
SHIFT SUMMARY PT MORE ALERT AND INTERACTIVE TODAY. PT DOES NOT COMMUNICATE NEEDS CLEARLY. PT CONTINUED TO GET OOB THROUGHOUT DAY BUT ABLE TO BE REDIRECTED. PT BECAME RESTLESS IN LATE AFTERNOON STATING HE DIDN'T KNOW WHAT WAS GOING ON. THIS NURSE SAT WITH PT FOR A TIME AND REORIENTED PT TO THE HOSPITAL AND SITUATION. ASSISTED PT TO CALL FAMILY. PT MORE AT EASE AFTER TALKING WITH FAMILY. SON AT BEDSIDE FOR A SHORT TIME IN AFTERNOON. BED IN LOWEST POSITION AND BED ALARM ON. REPORT GIVEN TO ACCOUNTANT MANAGER NURSE.
--- NOTE | 2022-10-16 23:27 | NUR ---
PT STATUS PT AGITATED, WANDERING AND REFUSING TO FOLLOW INSTRUCTION. PULLING AT PEG TUBE. REMOVED CLOTHING AND ATTENDS. EXITED BED AND PACED IN ROOM. ANGRILY CURSING AND REFUSING DIRECTION. HE IS A HIGH FALL RISK. HE IS CONFUSED. CALLED FOR SECURITY'S ASSISTANCE. HE HAS A HISTORY OF BEING COMBATIVE WITH STAFF. HOSPITALIST CALLED AND PRN ANXIETY MEDICATION AND BILATERAL SOFT RESTRAINTS ORDERED FOR PT SAFETY.
--- NOTE | 2022-10-17 04:48 | NUR ---
SHIFT SUMMARY ADMITTED FOR HYPERTENSIVE URGENCY. FULL CODE. SOFT BUE & BLE RESTRAINTS APPLIED THIS SHIFT. PT IS CONFUSED, IMPULSIVE, WANDERING, AGITATED, AND PULLING ON LINES/TUBES. PEG TUBE IN PLACE, HE IS NPO. CONTINUOUS TUBE FEEDING. 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 STANDBY ASSIST - BRP.
--- NOTE | 2022-10-17 19:42 | NUR ---
SHIFT SUMMARY: PT A/O X 2, STANDBY ASSIST. PT WAS PLEASANT AND COOPERATIVE THIS AM, AND WAS ABLE TO DISCONTINUE RESTRAINTS. PT WAS EVALUATED BY SPEECH THERAPY AND ADVANCED TO FINGER FOODS WITH THIN LIQUIDS. PT REFUSED MEALS BUT DRANK WATER. HE DID NOT HAVE ANY EPISODES OF COUGHING OR CHOKING. AT ABOUT 1 PM PT TOOK A NAP AND WHEN HE AWOKE HE BECAME VERY DISORIENTED, WAS SHAKING, AND CRYING AND FEARFUL BECAUSE HE DID NOT KNOW WHERE HE WAS. ASSISTED PT TO CALL HIS EX PACO AND GAVE PRN SEROQUEL AND PT DID CALM DOWN AND WAS ABLE TO SIT CALMLY AND WAS RE-DIRECTABLE ABOUT 45 MINUTES POST SEROQUEL ADMINISTRATION. PT CONTINUES FEEDING THROUGH PEG TUBE WAS TEMPORARILY STOPPED DUE TO HIS PACING THE ROOM AND FORGETTING HE WAS HOOKED TO FEEDING TUBE. PT WAS CALM AT DINNER TIME AND REFUSED HIS MEAL SO TUBE FEEDINGS WERE RESUMED PER ORDER. PT CALM AND RESTING IN BED WATCHING TV AT END OF SHIFT.
--- NOTE | 2022-10-17 23:03 | NUR ---
PATIENT DISORIENTED AT BEGINNING OF SHIFT. TRIED TO REORIENT MULTIPLE TIMES. AROUND 2099 PATIENT BECAME COMBATIVE WITH STAFF AND POP HELM CALLED. SECURITY CAME TO ASSIST AND ORDER OBTAINED FOR 4 POINT RESTRAINTS.
--- NOTE | 2022-10-18 05:20 | NUR ---
PATIENT CONFUSED AND UNABLE TO REORIENT, PATIENT CALM AT BEGINNING OF SHIFT, MEDICATED FOR PAIN PER EMAR, CHECKED ON PATIENT AT 2100 AND HE WAS SLEEPING, WITHIN FIVE MINUTES OF CHECKING ON HIM HE GOT OUT OF BED AND WAS TRYING TO LEAVE UNIT, ATTEMPTED TO STRIKE EDUCATIONAL AID AND BEAME COMBATIVE WITH MALLORY PARKER, POP HELM CALLED AND ORDERS RECEIVED FOR FOUR POINT RESTRAINTS. ROOM AIR, NO IV ACCESS, NO TELE, HELD 2100 METOPROLOL DUE TO LOW HR, STANDBY ASSIST, PEG TUBE W/ JEVITY 1.5 RUNNING @45 CC/HR AND FWF 65CC Q1H, FINGER FOODS WITH THIN LIQUIDS PER SPEECH THERAPY BUT PATIENT IS FTT AND REFUSES.
[2022-10-18 11:36] LABS: BASOPHILS ABSOLUTE AUTO 0.05 K/mm3 (0.00-0.23); BASOPHILS PERCENT AUTO 1 % (0-2); EOSINOPHILS ABSOLUTE AUTO 0.11 K/mm3 (0.00-0.68); EOSINOPHILS PERCENT AUTO 2 % (0-6); Hematocrit 39.6 % (37.0-53.0); Hemoglobin 13.7 g/dL (13.5-17.5); IMMATURE GRAN ABSOLUTE AUTO 0.07 K/mm3 (0.00-0.10); IMMATURE GRAN PERCENT AUTO 1 % (0-1); LYMPHOCYTES PERCENT AUTO 22 % (21-46); MONOCYTES ABSOLUTE AUTO 0.58 K/mm3 (0.16-1.47); MONOCYTES PERCENT AUTO 9 % (4-13); Mean Corpuscular HGB 33.6 pg (26.0-34.0); Mean Corpuscular HGB Conc 34.6 g/dL (31.5-36.5); Mean Corpuscular Volume 97 fL (80-100); NEUTROPHILS PERCENT AUTO 66 % (41-73); RDW Coefficient Variation 13.6 % (11.7-14.2); RDW Standard Deviation 48.6 fL (35.1-46.3); Red Blood Cell Count 4.08 M/mm3 (4.30-5.90); White Blood Cell Count 6.81 K/mm3 (4.00-11.30)
[2022-10-18 11:44] LABS: Albumin, Blood 3.3 g/dL (3.4-5.0); Albumin/Globulin Ratio 0.8 (0.8-1.8); Bilirubin, Total 0.6 mg/dL (0.1-1.0); Bun/Creatinine Ratio 18.3 (12.0-20.0); Calcium, Blood 9.1 mg/dL (8.5-10.1); Creatinine, Blood 2.13 mg/dL (0.60-1.20); Potassium, Blood 5.6 mmol/L (3.5-5.5); Total Protein, Blood 7.3 g/dL (6.4-8.2)
[2022-10-18 11:45] LABS: Mean Platelet Volume 11.2 fL (9.1-12.4)
[2022-10-18 12:06] LABS: Platelet Count 189 K/mm3 (150-400)
--- NOTE | 2022-10-18 17:43 | NUR ---
SHIFT SUMMARY: PT A/O X 1 STANDBY ASSIST DUE TO TUBE FEEDINGS AND IV LINES. PT WHEN AWAKE NEEDS RE-DIRECTION FREQUENTLY. HE HAS ATTEMPTED TO PULL IV LINES. HE ATTEMPTS TO GET OOB WITHOUT CALLING FOR ASSISTANCE. AT TIMES HE BECOMES ANGRY AND NOT RE-DIRECTABLE. SEROQUEL 25 MG GIVEN DAYTIME AND IS EFFECTIVE IN TREATING HIS ANGER AND AGGRESSION. AROUND 2 PM HE BECOMES VERY DISORIENTED ASKING FOR HIS MOM AND WANDERS TRYING TO FIND HER. HE IS DIFFICULT TO RE-DIRECT AT THIS TIME. PT POTASSIUM LEVEL 5.6, RECEIVED MEDICATIONS TO TREAT AND TOLERATED WELL. PT HAS NOT EATEN ANY MEALS PROVIDED. HAVE ENCOURAGED HIM TO EAT SEVERAL TIMES BUT HE REFUSES. PT CURRENTLY SITTING IN CHAIR IN ROOM. THIS RN NEEDING TO SIT WITH HIM TO KEEP HIM FROM AMBULATING UNASSISTED.
[2022-10-18 19:31] LABS: Bun/Creatinine Ratio 18.7 (12.0-20.0); Calcium, Blood 9.7 mg/dL (8.5-10.1); Creatinine, Blood 2.3 mg/dL (0.60-1.20)
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
[2022-10-19 06:38] LABS: BASOPHILS ABSOLUTE AUTO 0.05 K/mm3 (0.00-0.23); BASOPHILS PERCENT AUTO 1 % (0-2); EOSINOPHILS ABSOLUTE AUTO 0.12 K/mm3 (0.00-0.68); EOSINOPHILS PERCENT AUTO 2 % (0-6); Hematocrit 38.7 % (37.0-53.0); Hemoglobin 12.9 g/dL (13.5-17.5); IMMATURE GRAN ABSOLUTE AUTO 0.03 K/mm3 (0.00-0.10); IMMATURE GRAN PERCENT AUTO 1 % (0-1); LYMPHOCYTES ABSOLUTE AUTO 0.88 K/mm3 (0.84-5.20); LYMPHOCYTES PERCENT AUTO 14 % (21-46); MONOCYTES ABSOLUTE AUTO 0.46 K/mm3 (0.16-1.47); MONOCYTES PERCENT AUTO 7 % (4-13); Mean Corpuscular HGB 33.2 pg (26.0-34.0); Mean Corpuscular HGB Conc 33.3 g/dL (31.5-36.5); Mean Corpuscular Volume 100 fL (80-100); Mean Platelet Volume 10.3 fL (9.1-12.4); NEUTROPHILS ABSOLUTE AUTO 4.91 K/mm3 (1.96-9.15); NEUTROPHILS PERCENT AUTO 76 % (41-73); Platelet Count 270 K/mm3 (150-400); RDW Coefficient Variation 13.5 % (11.7-14.2); RDW Standard Deviation 49.8 fL (35.1-46.3); Red Blood Cell Count 3.88 M/mm3 (4.30-5.90); White Blood Cell Count 6.45 K/mm3 (4.00-11.30)
[2022-10-19 07:00] LABS: Albumin, Blood 3.7 g/dL (3.4-5.0); Albumin/Globulin Ratio 0.9 (0.8-1.8); Bilirubin, Total 0.4 mg/dL (0.1-1.0); Bun/Creatinine Ratio 19.4 (12.0-20.0); Calcium, Blood 9.7 mg/dL (8.5-10.1); Creatinine, Blood 1.91 mg/dL (0.60-1.20); Globulin, Blood 4.3 g/dL (2.2-4.0); Potassium, Blood 4.7 mmol/L (3.5-5.5)
--- NOTE | 2022-10-19 17:59 | NUR ---
PATIENT WAS IN SOFT WRIST RESTRAINTS FOR A PORTION OF THIS SHIFT DUE TO PULLING AT LINES, ATTEMPTING TO GET UP, AND NOT VERBALLY REDIRECTABLE. THE RESTRAINTS WERE REMOVED AFTER A PRN SEROQUEL WAS GIVEN AND THE PATIENT WAS MORE DIRECTABLE. PATIENT HAS BED ALARM ON AT THIS TIME AND STILL WILL STAND BUT IS NOW VERBALLY REDIRECTABLE AND SITS BACK DOWN WHEN ASKED. MOOD HAS BEED GOOD AND PATIENT SMILES AND LAUGHS THROUGH OUT THE SHIFT. TUBE FEED IS STILL AT 45 CONTINUOUS. MEDICATION CHANGES WERE MADE BY PROVIDER THIS SHIFT.
--- NOTE | 2022-10-19 19:34 | NUR ---
PATIENT HAS BEEN CONTINUOUSLY GETTING UP AND PULLING AT PEG TUBE SINCE SHIFT STARTED. PATIENT STATES HE WANTS TO GO HOME AND KEEPS TAKING OFF ALL HIS CLOTHES AND PULLING AT PEG TUBE SITE
--- NOTE | 2022-10-19 19:38 | NUR ---
FULL LINEN CHANGE AND GOWN CHANGE COMPLETED
[2022-10-19 21:06] LABS: Eosinophils-Raw #,Urine 0; White Blood Cells Urine 0-2 /hpf (0-5)
--- NOTE | 2022-10-20 05:52 | NUR ---
PATIENT UP ALL SHIFT AND GETTING OUT OF BED, CONSTANTLY PULLS ON PEG TUBE, CONSTANT REDIRECTION NEEDED AND PATIENT GETS VERBALLY ABUSIVE WITH STAFF, SAT AT PATIENTS DOOR MOST OF SHIFT TO AVOID RESTRAINTS. PATIENT CONFUSED, ROOM AIR, NO TELE, 20 GAUGE RIGHT FOREARM SALINE LOCKED AND REDRESSED, JEVITY 1.5 CONTINOUSLY RUNNING AT 45 CC/HR WITH 60 CC FREE WATER FLUSH Q1 HOUR, PATIENT HAS TO BE REDIRECTED MULTIPLE TIMES WHEN USING RESTROOM BECAUSE HE WILL URINATE IN TRASH CANS AND ALL OVER THE RUVALCABA, FLOORS, EQUIPMENT, AND ANYTHING IN THE ROOM. PATIENT NEEDS CONSTANT OBSERVATION AND REDIRECTION
[2022-10-20 05:58] LABS: BASOPHILS ABSOLUTE AUTO 0.06 K/mm3 (0.00-0.23); BASOPHILS PERCENT AUTO 1 % (0-2); EOSINOPHILS ABSOLUTE AUTO 0.12 K/mm3 (0.00-0.68); EOSINOPHILS PERCENT AUTO 1 % (0-6); Hematocrit 41.2 % (37.0-53.0); Hemoglobin 13.7 g/dL (13.5-17.5); IMMATURE GRAN ABSOLUTE AUTO 0.02 K/mm3 (0.00-0.10); IMMATURE GRAN PERCENT AUTO 0 % (0-1); LYMPHOCYTES ABSOLUTE AUTO 0.95 K/mm3 (0.84-5.20); LYMPHOCYTES PERCENT AUTO 11 % (21-46); MONOCYTES ABSOLUTE AUTO 0.65 K/mm3 (0.16-1.47); MONOCYTES PERCENT AUTO 8 % (4-13); Mean Corpuscular HGB 33.4 pg (26.0-34.0); Mean Corpuscular HGB Conc 33.3 g/dL (31.5-36.5); Mean Corpuscular Volume 101 fL (80-100); Mean Platelet Volume 10.7 fL (9.1-12.4); NEUTROPHILS ABSOLUTE AUTO 6.77 K/mm3 (1.96-9.15); NEUTROPHILS PERCENT AUTO 79 % (41-73); Platelet Count 257 K/mm3 (150-400); RDW Coefficient Variation 13.2 % (11.7-14.2); RDW Standard Deviation 49.5 fL (35.1-46.3); White Blood Cell Count 8.57 K/mm3 (4.00-11.30)
[2022-10-20 10:35] LABS: Albumin, Blood 3.7 g/dL (3.4-5.0); Albumin/Globulin Ratio 0.9 (0.8-1.8); Bilirubin, Total 0.4 mg/dL (0.1-1.0); Bun/Creatinine Ratio 19.9 (12.0-20.0); Calcium, Blood 9.9 mg/dL (8.5-10.1); Creatinine, Blood 1.36 mg/dL (0.60-1.20); Globulin, Blood 4.3 g/dL (2.2-4.0); Potassium, Blood 4.5 mmol/L (3.5-5.5)
--- NOTE | 2022-10-20 19:13 | NUR ---
PT ALERT NO S/S OF ACUTE DISTRESS, SAFETY MEASURES IN PLACE REPORT GIVEN TO ON COMING NURSE.
--- NOTE | 2022-10-21 04:00 | NUR ---
PATIENT SLEPT THROUGH ENTIRE SHIFT AND WAS ABLE TO BE REDIRECTED WHEN AWAKE. NO EVENTS OVERNIGHT
[2022-10-21 10:12] LABS: BASOPHILS ABSOLUTE AUTO 0.05 K/mm3 (0.00-0.23); BASOPHILS PERCENT AUTO 1 % (0-2); EOSINOPHILS ABSOLUTE AUTO 0.12 K/mm3 (0.00-0.68); EOSINOPHILS PERCENT AUTO 1 % (0-6); Hematocrit 42.2 % (37.0-53.0); IMMATURE GRAN ABSOLUTE AUTO 0.02 K/mm3 (0.00-0.10); IMMATURE GRAN PERCENT AUTO 0 % (0-1); LYMPHOCYTES ABSOLUTE AUTO 1.46 K/mm3 (0.84-5.20); LYMPHOCYTES PERCENT AUTO 15 % (21-46); MONOCYTES ABSOLUTE AUTO 0.59 K/mm3 (0.16-1.47); MONOCYTES PERCENT AUTO 6 % (4-13); Mean Corpuscular HGB 33.4 pg (26.0-34.0); Mean Corpuscular HGB Conc 33.2 g/dL (31.5-36.5); Mean Corpuscular Volume 101 fL (80-100); Mean Platelet Volume 10.5 fL (9.1-12.4); NEUTROPHILS ABSOLUTE AUTO 7.54 K/mm3 (1.96-9.15); NEUTROPHILS PERCENT AUTO 77 % (41-73); Platelet Count 274 K/mm3 (150-400); RDW Coefficient Variation 13.1 % (11.7-14.2); Red Blood Cell Count 4.19 M/mm3 (4.30-5.90); White Blood Cell Count 9.78 K/mm3 (4.00-11.30)
[2022-10-21 10:52] LABS: Albumin, Blood 3.8 g/dL (3.4-5.0); Albumin/Globulin Ratio 0.9 (0.8-1.8); Bilirubin, Total 0.4 mg/dL (0.1-1.0); Creatinine, Blood 1.37 mg/dL (0.60-1.20); Globulin, Blood 4.2 g/dL (2.2-4.0); Potassium, Blood 4.6 mmol/L (3.5-5.5)
--- NOTE | 2022-10-21 19:15 | NUR ---
PT ALERT NO S/S OF ACUTE DISTRESS. SAFETY MEASURES IN PLACE. REPORT GIVEN TO ON COMING NURSE.
--- NOTE | 2022-10-22 05:05 | NUR ---
SHIFT UNREMARKABLE. PATIENT WAS DROWSY BUT AROUSABLE FOR 2100 MEDICATIONS. AGITATED BUT COOPERATIVE WITH CARE. PATIENT HAS SLEPT THROUGH MOST OF REMAINDER OF SHIFT ONLY BRIEFLY WAKING PERIODICALLY BEFORE GOING BACK TO SLEEP. CALL LIGHT LEFT WITHIN REACH.
[2022-10-22 07:35] LABS: BASOPHILS ABSOLUTE AUTO 0.07 K/mm3 (0.00-0.23); BASOPHILS PERCENT AUTO 1 % (0-2); EOSINOPHILS ABSOLUTE AUTO 0.17 K/mm3 (0.00-0.68); EOSINOPHILS PERCENT AUTO 2 % (0-6); Hematocrit 39.5 % (37.0-53.0); Hemoglobin 13.4 g/dL (13.5-17.5); IMMATURE GRAN ABSOLUTE AUTO 0.02 K/mm3 (0.00-0.10); IMMATURE GRAN PERCENT AUTO 0 % (0-1); LYMPHOCYTES ABSOLUTE AUTO 1.52 K/mm3 (0.84-5.20); LYMPHOCYTES PERCENT AUTO 17 % (21-46); MONOCYTES ABSOLUTE AUTO 0.62 K/mm3 (0.16-1.47); MONOCYTES PERCENT AUTO 7 % (4-13); Mean Corpuscular HGB 33.8 pg (26.0-34.0); Mean Corpuscular HGB Conc 33.9 g/dL (31.5-36.5); Mean Corpuscular Volume 100 fL (80-100); Mean Platelet Volume 10.6 fL (9.1-12.4); NEUTROPHILS ABSOLUTE AUTO 6.37 K/mm3 (1.96-9.15); NEUTROPHILS PERCENT AUTO 73 % (41-73); Platelet Count 252 K/mm3 (150-400); RDW Coefficient Variation 12.9 % (11.7-14.2); RDW Standard Deviation 47.5 fL (35.1-46.3); Red Blood Cell Count 3.96 M/mm3 (4.30-5.90); White Blood Cell Count 8.77 K/mm3 (4.00-11.30)
[2022-10-22 08:03] LABS: Bun/Creatinine Ratio 19.2 (12.0-20.0); Calcium, Blood 9.3 mg/dL (8.5-10.1); Creatinine, Blood 1.56 mg/dL (0.60-1.20); Potassium, Blood 4.5 mmol/L (3.5-5.5)
--- NOTE | 2022-10-22 19:07 | NUR ---
PT RESTING NO S/S OF ACUTE DISTRESS, SAFETY MEASURES IN PLACE. REPORT GIVEN TO ON COMING NURSE.
--- NOTE | 2022-10-23 04:13 | NUR ---
PATIENT HAS BEEN NOTABLY LABILE THROUGHOUT SHIFT. WAS PLEASANT AND COOPERATIVE WITH CARE DURING 2100 MEDICATION ADMINISTRATION. BECAME AGITATED, IMPULSIVE, AND COMBATIVE WITH STAFF IN THE FOLLOWING HOURS. AOX1 AND VERY CONFUSED THROUGHOUT SHIFT. BEFORE MIDNIGHT, PATIENT BECAME ESPECIALLY COMBATIVE WITH STAFF AND WAS IMPULSIVELY ATTEMPTING TO ENTER OTHER PATIENTS ROOM. AT THIS POINT, PATIENT WAS PUT INTO SOFT WRIST RESTRAINTS ON BOTH WRISTS. LEFT IN RESTRAINTS FOR ~40 MINUTES BEFORE THEY WERE REMOVED PATIENT HAD CALMED DOWN AND AGREED TO REMAIN SAFELY WITHIN ROOM. THIS BEHAVIOR LASTED FOR SEVERAL HOURS BEFORE PATIENT SUDDENLY BECAME IMPULSIVE AGAIN AND ATTEMPTED TO STUFF AND CLOG THE DRAIN IN THE SINK IN HIS BATHROOM. WAS ABLE TO BE REDIRECTED INTO BED AND HAS BEEN SLEEPING SINCE. WILL CONTINUE TO CLOSELY MONITOR. CALL LIGHT LEFT WITHIN REACH.
[2022-10-23 07:02] LABS: BASOPHILS ABSOLUTE AUTO 0.04 K/mm3 (0.00-0.23); BASOPHILS PERCENT AUTO 0 % (0-2); EOSINOPHILS ABSOLUTE AUTO 0.08 K/mm3 (0.00-0.68); EOSINOPHILS PERCENT AUTO 1 % (0-6); Hematocrit 37.6 % (37.0-53.0); Hemoglobin 12.8 g/dL (13.5-17.5); IMMATURE GRAN ABSOLUTE AUTO 0.04 K/mm3 (0.00-0.10); IMMATURE GRAN PERCENT AUTO 0 % (0-1); LYMPHOCYTES ABSOLUTE AUTO 1.44 K/mm3 (0.84-5.20); LYMPHOCYTES PERCENT AUTO 14 % (21-46); MONOCYTES ABSOLUTE AUTO 0.63 K/mm3 (0.16-1.47); MONOCYTES PERCENT AUTO 6 % (4-13); Mean Corpuscular HGB 33.5 pg (26.0-34.0); Mean Corpuscular Volume 98 fL (80-100); Mean Platelet Volume 10.7 fL (9.1-12.4); NEUTROPHILS ABSOLUTE AUTO 7.78 K/mm3 (1.96-9.15); NEUTROPHILS PERCENT AUTO 78 % (41-73); Platelet Count 248 K/mm3 (150-400); RDW Coefficient Variation 12.6 % (11.7-14.2); RDW Standard Deviation 45.6 fL (35.1-46.3); Red Blood Cell Count 3.82 M/mm3 (4.30-5.90); White Blood Cell Count 10.01 K/mm3 (4.00-11.30)
[2022-10-23 07:24] LABS: Bun/Creatinine Ratio 22.1 (12.0-20.0); Calcium, Blood 9.3 mg/dL (8.5-10.1); Creatinine, Blood 1.72 mg/dL (0.60-1.20); Potassium, Blood 4.2 mmol/L (3.5-5.5)
--- NOTE | 2022-10-23 10:28 | NUR ---
HALLWAY CONFRONTATION PT CAME OUT OF HIS ROOM. WALKED UP TO THE NIGHT NURSE AND STARTED DEMANDING RELEASE. PHYSICALLY CAME WITH IN INCHES OF NURSE. BALLED UP HIS FISTS. NIGHT NURSE REDIRECTED HIM BACK TO HIS ROOM. HE STOMPED BACK TO HIS ROOM. CONTINUE POC.
--- NOTE | 2022-10-23 10:40 | NUR ---
PEG TUBE 1000 PEG TUBE FEEDING COMPLETED. PT TOLERATED VOLUME WELL. SKIN AROUND PEG TUBE WITH REDDISH, THICK, NON ODORIUOS DRAINAGE. CLEANED SITE WITH SOAP AND WATER. PLACED A SPLIT SPONGE BETWEEN HIS SKIN AND THE KEEPER. TUBE KEEPER IS AT 5. CONTINUE POC.
--- NOTE | 2022-10-23 10:42 | NUR ---
BATHROOM SINK NIGHT RN MENTIONED THAT PT WENT INTO THE BATHROOM. PLUGGED THE SINK AND TRIED TO FLOOD THE BATHROOM TALKED WITH MAINTENANCE. THEY CAME AND TURNED THE BATHROOM SINK WATER OFF. THE SINK INHIS ROOM IS STILL FUNCTIONING BUT HE CAN BE SEEN BY THE CAMERA. TALKED WITH HIM ABOUT WHY THE WATE WS BEING TURNED OFF. HE THEN PERSEVERATED ON HOW HE'S CAPTIVE AND HIS FAMILY HATES HIM. CONTINUE POC.
--- NOTE | 2022-10-23 14:08 | NUR ---
Spiritual care is contacted to help manage the patient because he is stomping up and down the hals and trying to escape the special care unit. Once I arrive ELENA Ray is standing in front of the special care enterance trying to stop the patient from leaving the unit and informs me that hte lock mechanism on the door has been deactivated. I immediately interrupt a meeting and ask the Medical Screw Machine Tool Setter for assistance with the door and he sends help immediately. I then attempt to begin conversation with the patient who will say nothing to me or acknowledge me in any way. I allow patient to roam freely in the unit now that it is secured.
--- NOTE | 2022-10-23 15:03 | NUR ---
SITTING ON THE FLOOR PT MADE SEVERAL ATTEMPTS TO LEAVE THE UNIT. HE TRIED TO TAIL GATE OUT. WHEN HE WAS REDIRECTED HE WENT DOWN THE HALLWAY AND SAT ON THE FLOOR. HE SAT ON THE FLOOR FOR ABOUT AN HOUR. GOT HIMSELF UP WITHOUT ISSUE. THEN STARTED ENTERING OTHER PEOPLES ROOMS. HE WOULD SMILE WHEN HE WAS REDIRECTED. GAVE HIM SEROQUEL. OUND THE BATHROOM SINK FULL OF LINEN WITHTHE TAP ON BUT THE WATER WAS TURNED OFF TO THE SINK EARLIER. CURRENTLY RESTING QUIETLY IN BED.
--- NOTE | 2022-10-23 16:34 | NUR ---
TUBE FEEDING PT DECLINED 1400 TUBE FEEDING. HE WANTS TO EAT DINNER. TOLD HIM IF HE EATS LESS THAN HALF HIS DINNER I WOULD REPLACE WITH TUBE FEEDING. HE AGREED. CONTINUE POC.
--- NOTE | 2022-10-23 16:36 | NUR ---
SEROQUAL 25MG MEDICATED PT WITH SEROQUEL 25MG X3 TODAY. WHEN SEROQUAL IS AFFECTING PT HE IS SMILING, CORDIAL AND PEACEFULLY EYE CONTACT AND WALKING THE HALLWAY. HE IS NOT OVERLY SLEEPY. HE DID NAP FOR ABOUT AN HOUR. WHEN IT STARTS TO WEAR OFF HE BECOMES ANGRY, SWEARING AND EASILY IRRITATED. cONTINUE POC.
--- NOTE | 2022-10-24 06:36 | NUR ---
SHIFT NOTE PATIENT IS ALERT, ORIENTED TO SELF, AGGITATED/LABILE, CRAWLING AROUND ON GROUND ON AND OFF. SOFT WRIST RESTRAINTS USED WHILE GATHERING MEDS, NO NEED THERE AFTER. PRN SEROQUEL AND IM'S ADMINISTERED WITH GOOD RESULTS. PRESSURES WERE SOFT AFTER HS CARDIAC MEDS, PATIENT BECAME UNSTEADY, AND ALRMS WERE USED. REFUSED HS JEVITY, ACCEPTED AM DOSE. VSS. WILL CONT TO MONITOR.
[2022-10-24 09:24] LABS: BASOPHILS ABSOLUTE AUTO 0.04 K/mm3 (0.00-0.23); BASOPHILS PERCENT AUTO 0 % (0-2); EOSINOPHILS ABSOLUTE AUTO 0.05 K/mm3 (0.00-0.68); EOSINOPHILS PERCENT AUTO 1 % (0-6); Hematocrit 34.6 % (37.0-53.0); IMMATURE GRAN ABSOLUTE AUTO 0.03 K/mm3 (0.00-0.10); IMMATURE GRAN PERCENT AUTO 0 % (0-1); LYMPHOCYTES ABSOLUTE AUTO 0.92 K/mm3 (0.84-5.20); LYMPHOCYTES PERCENT AUTO 10 % (21-46); MONOCYTES ABSOLUTE AUTO 0.57 K/mm3 (0.16-1.47); MONOCYTES PERCENT AUTO 6 % (4-13); Mean Corpuscular HGB 33.7 pg (26.0-34.0); Mean Corpuscular HGB Conc 34.7 g/dL (31.5-36.5); Mean Corpuscular Volume 97 fL (80-100); Mean Platelet Volume 10.6 fL (9.1-12.4); NEUTROPHILS ABSOLUTE AUTO 8.01 K/mm3 (1.96-9.15); NEUTROPHILS PERCENT AUTO 83 % (41-73); Platelet Count 257 K/mm3 (150-400); RDW Coefficient Variation 12.7 % (11.7-14.2); RDW Standard Deviation 45.7 fL (35.1-46.3); Red Blood Cell Count 3.56 M/mm3 (4.30-5.90); White Blood Cell Count 9.62 K/mm3 (4.00-11.30)
[2022-10-24 09:48] LABS: Albumin, Blood 3.7 g/dL (3.4-5.0); Albumin/Globulin Ratio 0.9 (0.8-1.8); Bilirubin, Total 0.6 mg/dL (0.1-1.0); Bun/Creatinine Ratio 24.8 (12.0-20.0); Calcium, Blood 9.2 mg/dL (8.5-10.1); Creatinine, Blood 2.02 mg/dL (0.60-1.20); Globulin, Blood 3.9 g/dL (2.2-4.0); Potassium, Blood 4.2 mmol/L (3.5-5.5); Total Protein, Blood 7.6 g/dL (6.4-8.2)
--- NOTE | 2022-10-24 13:28 | NUR ---
RN NOTE MR MAURICIO SPEAKS IN A WHISPER AND CAN BE DIFFICULT TO UNDERSTAND. HE IS ABLE TO ANSWER QUESTIONS APPROPRIATELY AT TIMES AND SEEMS TO BE FORGTEFUL OF QUESTIONS THAT WERE RECENTLY ANSWERED. HE HAS BEEN CALM THIS MORNING. HE TOOK MOST OF HIS AM MEDICATIONS BUT SEEMED OVERWHELMED BY THE VOLUME OF MEDICATIONS HE HAS AT 9AM AND REFUSED SOME OF THEM. PHARMACIST IS GOING TO RESCHEDULE SOME OF THE MEDICATIONS TO DECREASE VOLUME AT 9AM. HE DID NOT EAT BREAKFAST OR LUNCH. HE DID ACCEPT JEVITY PEG FEED AND 300CC WATER FLUSH. HE GETS UP AND WALKS IN THE HALLS SOMETIMES AND NEEDS TO BE REDIRECTED TO GET BACK TO HIS ROOM. UA REQUESTED AND PT GIVEN CLEAN URINAL. BED LOW, CALL LIGHT IN REACH.
--- NOTE | 2022-10-24 18:07 | NUR ---
SHIFT SUMMARY SEE PRIOR RN NOTE. MR MAURICIO HAS BEEN CALM THROUGHOUT THE SHIFT. NO C/O PAIN. TOLERATED BOTH PEG TUBE FEEDS BUT DID EAT BREAKFAST OR LUNCH. HE VOIDED A FEW TIMES THIS MORNING BUT HAS BEEN SLEEPING THIS AFTERNOON AND HAS NOT BEEN UP TO VOID. URINE SAMPLE REQUESTED. BED LOW, CALL LIGHT IN REACH.
[2022-10-25 01:25] LABS: Source, Urine Clean Catch
[2022-10-25 01:29] LABS: Bilirubin, Urine Neg (Neg); Blood, Urine Neg (Neg); Glucose Qualitative, Urine Neg (Neg); Ketones, Urine Neg (Neg); Leukocyte Esterase, Urine Neg (Neg); Nitrite, Urine Neg (Neg); Protein, Urine 1+ (Neg); Urobilinogen, Urine NORM (Normal)
[2022-10-25 02:08] LABS: Appearance, Urine Clear (Clear); Color, Urine Yellow (P-Yellow)
--- NOTE | 2022-10-25 05:38 | NUR ---
PATIENT ALERT TO SELF, HOWEVER HARD TO ASSESS DUE TO OPEN TRACH STOMA, PATIENT USES FINGERS TO PLUG WHILE TALKING. MOSTLY INDEPENDENT IN ROOM, HOWEVER BED ALRM USED AFTER PRN IM'S USED TO TREAT AGGITATION (THROWING BLANKETS, TEARING OFF CLOTHES, PEEING ON BED). PATIENT WAS AGREABLE TO IM, NOT PEG MEDS AT THAT TIME. PEG TUBE HS FEEDING REFUSED. AM ADMINISTERED ALONG WITH FLUSH. NO OTHER ISSUES TO REPORT.
[2022-10-25 06:13] LABS: BASOPHILS ABSOLUTE AUTO 0.04 K/mm3 (0.00-0.23); BASOPHILS PERCENT AUTO 0 % (0-2); EOSINOPHILS PERCENT AUTO 1 % (0-6); Hematocrit 36.8 % (37.0-53.0); Hemoglobin 12.4 g/dL (13.5-17.5); IMMATURE GRAN ABSOLUTE AUTO 0.02 K/mm3 (0.00-0.10); IMMATURE GRAN PERCENT AUTO 0 % (0-1); LYMPHOCYTES ABSOLUTE AUTO 1.62 K/mm3 (0.84-5.20); LYMPHOCYTES PERCENT AUTO 17 % (21-46); MONOCYTES ABSOLUTE AUTO 0.55 K/mm3 (0.16-1.47); MONOCYTES PERCENT AUTO 6 % (4-13); Mean Corpuscular HGB 33.2 pg (26.0-34.0); Mean Corpuscular HGB Conc 33.7 g/dL (31.5-36.5); Mean Corpuscular Volume 99 fL (80-100); Mean Platelet Volume 10.6 fL (9.1-12.4); NEUTROPHILS ABSOLUTE AUTO 7.39 K/mm3 (1.96-9.15); NEUTROPHILS PERCENT AUTO 76 % (41-73); Platelet Count 268 K/mm3 (150-400); RDW Coefficient Variation 12.6 % (11.7-14.2); RDW Standard Deviation 45.8 fL (35.1-46.3); Red Blood Cell Count 3.73 M/mm3 (4.30-5.90); White Blood Cell Count 9.72 K/mm3 (4.00-11.30)
[2022-10-25 06:26] LABS: Bun/Creatinine Ratio 27.1 (12.0-20.0); Calcium, Blood 9.5 mg/dL (8.5-10.1); Creatinine, Blood 1.81 mg/dL (0.60-1.20); Potassium, Blood 4.2 mmol/L (3.5-5.5)
--- NOTE | 2022-10-25 16:52 | NUR ---
SHIFT SUMMARY: PT A&O X1-2. NO ACUTE CHANGES WITH PT THIS SHIFT. PT RECEIVED TUBE FEEDINGS TO GRAVITY TWICE THIS SHIFT AND WILL RECEIVE ONE MORE AT 1800. PT SON WAS IN TO HELP AND COMFORT PT SEVERAL HOURS THIS SHIFT. RECEIVED MANY CALLS FROM REMOTE MONITORING THAT PT WAS UNSTEADY ON FEET IN ROOM. ATTEMPED TO TALK TO PT ABOUT USING WALKER BUT HAD NO INTEREST. PT WALKED OUT INTO HALLWAY TODAY AND STATED HE WAS PACKED AND READY TO GO HOME. TALKED TO PT ABOUT THE NEED TO STAY IN THE HOSPITAL. PT ABLE TO COMMUNICATE WITH FINGER OVER STOMA. CALL LIGHT IN REACH. WILL CONTINUE TO MONITOR.
--- NOTE | 2022-10-26 05:52 | NUR ---
SHIFT SUMMARY; NO ACUTE CHANGES OVERNIGHT. THE PT SLEPT IN BED T/O THE NIGHT. THE PT IS AXO X2 THIS EVENING. THE PT WAS PLEASANT T/O THE NIGHT. THE PT IS CONTINENT/INCONTINENT WHICH MAKES IT CHALLENGING TO BLADDER SCAN HIM FOR A POST VOID RESIDUAL. THE PT DECLINES TO BE CHANGES THIS MORNING. THE PT RECIEVED HIS 10PM AND 6AM BOLUS FEEDS, TOLERATED WELL. THE PT DENIES ANY N/V, DIARRHEA, CHEST PAIN/PRESSURE, PAIN OR SOB. THE PTS PEG TUB SITE IS RED/PINK WITH RED/PINK DRAINAGE. THERE IS ALSO DRIED BLOOD AROUND THE PEG TUBE INSERTION SITE BELOW THE PEG TUBE DISK. ADDITIONALLY THE PTS PEG TUBE SIGHT IS ODOROUS, THE PT DENIES ANY PAIN TO THE PEG TUBE SITE. I CLEANED THE PTS PEG TUBE SITE WITH WATER AND SOAP AND THEN PATTED THE AREA DRY WITH GUAZE AND REPLACED THE SPLIT SPONGE OVER THE TOP OF THE PEG TUBE DISK. CURRENTLY THE PT IS SLEEPING IN BED WITH THE BED IN THE LOWEST POSITION AND THE CALL LIGHT AT BEDSIDE.
--- NOTE | 2022-10-26 09:00 | NUR ---
pt is a/ox 2 to 3, seems irritable this am, did allow this nurse to give meds via peg tube, lungs are clear t/o, on r/a, resp even and unlabored, no cough noted, hrr, no edema noted, ppp+2, cap refill <3sec, vs stable, afebrile, peg tube is clear and patent, with no residules noted, pt hard to understand as he has to plug his trach to speak and is very soft, got frustrated with this nurse for asking him to repeat, skin c/w/d, gets up to bathroom indep, should be sba, so bed alarm is activated, marcelo osborne, call light in reach.
--- NOTE | 2022-10-26 18:34 | NUR ---
pt came out in frazier and into another pts room this afternoon, confused, was easily redirected back to his room, no further changes this shift, states he is doing ok, assisted him to call his , call light in reach.
--- NOTE | 2022-10-26 21:49 | NUR ---
1400 FEEDING WAS MISSED TODAY PER DAYSHIFT REPORT, PLAN TO SPLIT THE MISSED FEEDING BETWEEN THE 10PM AND 6AM FEEDING. GAVE PT 1.5 CARTONS OF 1.5 JEVITY AT 10PM FEEDINGS WILL DO THE SAME FOR 6AM FEEDING. PT TOLERATED 10PM FEED WELL.
--- NOTE | 2022-10-27 06:31 | NUR ---
SHIFT SUMMARY; NO ACUTE CHANGES T/O THE NIGHT. PT IS AXO X2 THIS SHIFT. PTS GAIT IS UNSTEADY, THEREFORE THE BED ALARM IS ON DUE TO THE PT HAVING INTERMITTEN IMPULSIVENESS. HOWEVER, PT ONLY GOT OUT OF BED THREE TIMES LAST NIGHT AND WAS EASILY REDIRECTABLE. 10PM AND 6AM PEG TUBE FEEDINGS COMPLETED, WELL 1400 FEEDING FROM 10/26/22 WAS SPLIT BETWEEN THE FEEDINGS. REFER TO PREVIOUS NOTE FOR FURTHER EXPLANATION. PT TOLERATED FEEDS WELL. PT WAS INCONTINENT T/O THE NIGHT, THEREFORE UNSUCCESSFUL IN COMPLETING ANY POST RESIDUAL VOIDS T/O THE NIGHT. CURRENTLY THE PT IS SLEEPING IN BED. THE PT DENIES ANY PAIN, CHEST PAIN/PRESSURE, SOB OR N/V THIS SHIFT. THE PTS BED IS IN THE LOWEST POSITION, BED ALARM IS ON AND THE CALL LIGHT IS WITHIN REACH. PEG TUBE SITE WAS CLEANED AND REDRESSED THIS AM. PEG TUBE SITE IS PINK, WITH PINK/RED DRAINAGE AND DRIED BLOOD AROUND AND UNDERNEATH THE PEG TUBE DISK. PEG TUBE SITE IS ODOROUS DESPITE BEING CLEANED WITH SOAP AND WATER.
--- NOTE | 2022-10-27 08:00 | NUR ---
pt a/ox3, pleasant and cooperative with care, this am, in better spirits than yesterday, lungs are clear t/o, a bit dim in bases, resp even and unlabored, on r/a, occ cough, trach stoma in place, he places finger over to speak in a whisper, denies pain, states he slept last night, hrr, no edema noted, ppp+1, cap refill <3sec, btx4, abd flat soft nontender, has peg tube in place, flushes well, no residule, briefs in place, skin c/w/d, [place], alma, call light in reach.
--- NOTE | 2022-10-27 18:23 | NUR ---
Dr. Feng was consulted, he is seeing the pt at this time, pt is in good spirits, no complaints states he is doing just fine every time he is checked on. isn't eating much on his meal trays. call light in reach.
--- NOTE | 2022-10-27 22:19 | NUR ---
PT WITH INCREASED CONFUSION TONIGHT. I WENT INTO PTS ROOM TO TAKE HIM TO THE BATHROOM AND HE ATTEMPTED TO GO PEE BUT DID NOT END UP GOING. NOT EVEN 5 MINUTES LATER HE GOT OUT OF BED AND WAS LEANING AGAINST THE HOSPITAL ROOM WALL PEEING ON THE WALL/FLOOR. PT STATES HE THOUGHT IT WAS A URINAL.
--- NOTE | 2022-10-28 04:15 | NUR ---
SHIFT SUMMARY; PT WITH INCREASED CONFUSION AT THE BEGINNING OF SHIFT, REFER TO PREVIOUS NOTE. PT HAS BEEN IN BED SLEEPING SINCE APPROXIMATLEY 2300. PT IS AXO X1/2 THIS EVENING. PT IS REDIRECTABLE, AND COOPERATIVE WITH CARE. THE PT RECIEVED 2200 PEG TUBE FEEDING AND TOLERATED WELL, 0600 FEEDING TO BE DONE. PEG TUBE SITE CLEANED AND DRESSED. THE PT DENIES ANY PAIN, SOB, CHEST PAIN/PRESSURE THIS EVENING. PT WAS INCONTINENT T/O THE NIGHT. CURRENTLY THE PT IS SLEEPING IN BED WITH THE BED IN THE LOWEST POSITION AND THE CALL LIGHT AT BEDSIDE. NO FURTHER CHANGES TO REPORT.
--- NOTE | 2022-10-28 16:55 | NUR ---
SHIFT SUMMARY: PT ALERT AND ORIENTED X2 THIS SHIFT. NO ACUTE CHANGES WITH PT THIS SHIFT. PT WORKED WITH PHYSICAL THERAPY WHO STATED PT WAS STABLE ENOUGH FOR D/C FROM THERAPY. PT CONTINUES TO BE TUBE FEEDINGS 5 TIMES A DAY. FEEDINGS CHANGED TO ISOSOURCE DUE TO BEING OUT OF JEVITY. 300 BOLUS OF WATER WITH FEEDINGS. PT REFUSED AFTERNOON TUBE FEEDING. HE APPEARS VERY UPSET THAT HE CANNOT LEAVE AND THAT HE HAS NOT SEEN HIS . PT STATED MULTIPLE TIMES THAT SAID HE COULD LEAVE. EXPLAINED TO PT SEVERAL TIMES THE SITUATION OF WHY HE WAS STILL IN HOSPITAL. PEG TUBE SITE ASSESSED AND CLEANED. PT CURRENTLY RESTING IN BED WITH VISITOR IN ROOM. CALL LIGHT IN REACH. BED IN LOWEST POSITION. WILL CONTINUE TO MONITOR.
--- NOTE | 2022-10-28 18:24 | NUR ---
PT REFUSED 1800 TUBE FEEDING WELL 1400. PT DOING WELL EATING REGULAR DIET.
--- NOTE | 2022-10-29 05:14 | NUR ---
AOX2, DOES NOT CALL APPROPRIATELY, BED ALARM ON. FREQUENTLY UP WITHOUT CALLING, WITHOUT WALKER. GAIT IS STABLE BUT WEAK. BP 182/90 PRIOR TO SCHEDULED HYDRALAZINE/METOPROLOL. REFUSED TUBE FEEDING UNTIL 0230. TOLERATES TUBE FEED AND CRUSHED MEDS VIA PEG TUBE. LAST BM ON 10/28. REDIRECTABLE, COOPERATIVE.
[2022-10-29 05:23] LABS: BASOPHILS ABSOLUTE AUTO 0.04 K/mm3 (0.00-0.23); BASOPHILS PERCENT AUTO 1 % (0-2); EOSINOPHILS ABSOLUTE AUTO 0.14 K/mm3 (0.00-0.68); EOSINOPHILS PERCENT AUTO 2 % (0-6); Hematocrit 36.4 % (37.0-53.0); Hemoglobin 12.8 g/dL (13.5-17.5); IMMATURE GRAN ABSOLUTE AUTO 0.05 K/mm3 (0.00-0.10); IMMATURE GRAN PERCENT AUTO 1 % (0-1); LYMPHOCYTES ABSOLUTE AUTO 1.48 K/mm3 (0.84-5.20); LYMPHOCYTES PERCENT AUTO 17 % (21-46); MONOCYTES PERCENT AUTO 7 % (4-13); Mean Corpuscular HGB Conc 35.2 g/dL (31.5-36.5); Mean Corpuscular Volume 97 fL (80-100); Mean Platelet Volume 10.4 fL (9.1-12.4); NEUTROPHILS ABSOLUTE AUTO 6.18 K/mm3 (1.96-9.15); NEUTROPHILS PERCENT AUTO 73 % (41-73); Platelet Count 256 K/mm3 (150-400); RDW Coefficient Variation 12.4 % (11.7-14.2); RDW Standard Deviation 43.8 fL (35.1-46.3); Red Blood Cell Count 3.76 M/mm3 (4.30-5.90); White Blood Cell Count 8.49 K/mm3 (4.00-11.30)
[2022-10-29 05:48] LABS: Alanine Aminotransfer (ALT/SGP 23 U/L (12-78); Albumin, Blood 3.5 g/dL (3.4-5.0); Albumin/Globulin Ratio 0.8 (0.8-1.8); Alk Phos 60 U/L (50-136); Anion Gap 5 mmol/L (6-16); Aspartate Aminotrans (AST/SGOT 21 U/L (12-37); Bilirubin, Total 0.3 mg/dL (0.1-1.0); Blood Urea Nitrogen 26 mg/dL (8-24); Bun/Creatinine Ratio 21.5 (12.0-20.0); C-REACTIVE PROTEIN, EXT RANGE <0.290 mg/dL (0.000-0.300); CO2, Blood 30 mmol/L (21-32); Calcium, Blood 9.6 mg/dL (8.5-10.1); Chloride, Blood 101 mmol/L (98-108); Creatinine, Blood 1.21 mg/dL (0.60-1.20); Globulin, Blood 4.3 g/dL (2.2-4.0); Glomerular Filtration Rate 65 (60-); Glucose, Blood 155 mg/dL (70-99); Magnesium, Blood 2.4 mg/dL (1.6-2.4); Phosphorus, Blood 4.4 mg/dL (2.5-4.9); Potassium, Blood 4.1 mmol/L (3.5-5.5); Sodium, Blood 136 mmol/L (136-145); Total Protein, Blood 7.8 g/dL (6.4-8.2)
[2022-10-29] MEDS ORDERED: NORVASC10 MG PT (11:53)
[2022-10-29] MEDS ORDERED: DOCU LIQUI50 MG/5 ML PT (11:55)
[2022-10-29] MEDS ORDERED: METO50 PT (11:59)
--- NOTE | 2022-10-29 17:56 | NUR ---
SHIFT SUMMARY PATIENT A&O X3. PATIENT OCCASSIONALLY FORGETFUL, BUT EASILY REDIRECTABLE. PATIENT IS SBA IN ROOM. PATIENT HAD MANY VISITORS TODAY. THIS MADE PATIENT REALLY HAPPY. PATIENT REALLY WANTS TO GO HOME, VERY TEARFUL WHEN MENTIONING IT. DISCHARGE ORDERS IN PLACE, SEE CLOUD AUTOMATION TESTER NOTES FOR DETAILS. PATIENT RECIEVED 1000 FEEDING WITH MEDICATIONS. PATIENT DID HAVE SOME ORAL INTAKE FOR ALL MEALS. PATIENT DECLINED THE 1400 TUBE FEEDING DUE TO FEELING FULL. PATIENT RECIEVED THE 1800 FEEDING. PATIENT HAS BEEN VERY PLEASANT AND COOPERATIVE WITH CARE.
--- NOTE | 2022-10-30 05:53 | NUR ---
VSS ON RA, PLEASANT AND COOPERATIVE WITH CARES, DID NOT GET OOB FREQUENTLY IN PREVIOUS SHIFTS SLEPT MUCH OF SHIFT. REFUSED PEG FEEDINGS. TOLERATES MEDS VIA PEG. CONTINENT. TOLERATES SMALL PO SNACKS AND SIPS. INTERMITTENTLY USES CALL LIGHT APPROPRIATELY.
[2022-10-30 09:09] LABS: Bun/Creatinine Ratio 21.3 (12.0-20.0); Calcium, Blood 9.3 mg/dL (8.5-10.1); Creatinine, Blood 1.22 mg/dL (0.60-1.20); Potassium, Blood 4.4 mmol/L (3.5-5.5)
--- NOTE | 2022-10-30 17:17 | NUR ---
SHIFT SUMMARY PATIENT DENIES PAIN, NAUSEA, AND SHORTNESS OF BREATH. PATIENT IS A&O X3-4. PATIENT IS A SBA WITH A FWW. PATIENT HAS PEG TUBE, DRESSING IS C/D/I. PATIENT ATE 50% OF BREAKFAST AND LUNCH, DECLINED 1000 AND 1400 BOLUS FEEDING DUE TO FEELING FULL. PATIENT HAD MANY VISITORS TODAY. PATIENT VERY TEARFUL HE COULD NOT GO HOME. PATIENT VERY PLEASANT AND COOPERATIVE WITH CARE.
--- NOTE | 2022-10-31 05:12 | NUR ---
AOX2-3, FORGETFUL, REQUIRES INTERMITTENT REDIRECTION, PT WAS PREPARED TO LEAVE HOSPITAL X2 DURING THE NIGHT. BED ALARM ON. TOLERATES PO FLUIDS AND MEDS/FLUIDS VIA PEG LAST NIGHT. VSS ON RA. CONTINENT OF BOWEL AND BLADDER. HOPES TO DC TODAY.
--- NOTE | 2022-10-31 17:48 | NUR ---
SHIFT SUMMARY PT A&OX2 AND IN PLEASENT MOOD T/O SHIFT. PT TOLERATING PO INTAKE WELL. REFUSED TUBE FEEDING. AMB BLACKMON W/ STEADY GAIT IND. PILLS WHOLE THIN LIQUIDS. VSS. CALL LIGHT W/IN REACH. CALLED THIS SHIFT, REQUESTING DR. RUBIN-NOTIFIED DR. RAMOS.
--- NOTE | 2022-11-01 04:50 | NUR ---
A/OX2-3; ALERT TO SELF /PLACE /TIME. SBA TO BR WITH WALKER. PEG INTACT. PATIENT DECLINED TUBE FEEDS THIS SHIFT. BED ALARM SET. SLEEP PROMOTED. CALL LIGHT IN REACH; ENCOURAGED TO MAKE NEEDS KNOWN. LIKELY WILL DC TO HOME THIS MORNING.
--- NOTE | 2022-11-01 10:09 | NUR ---
PATIENT TO BE DISCHARGED BEFORE NOON. CALLED DR. RAOMS, WHO REFERRED ME TO TODAY'S PROVIDER DR. SEAMAN. CALLED DR. SEAMAN, ASKED IF OK TO USE D/C ORDERS FROM THE OTHER DAY AND ASKED IF HE NEEDED TO EVALUATE THE PATIENT RPIOR TO D/C. DR. SEAMAN STATED OK TO USE PREVIOUS D/C ORDERS AND THAT HE DID NOT NEED TO SEE PATIENT PRIOR TO D/C. WILL CONTINUE WITH D/C.
--- NOTE | 2022-11-01 11:46 | NUR ---
PATIENT DISCHARGED TO HOME WITH . VERBALIZED UNDERSTANDING OF D/C INSTRUCTIONS, AT BEDSIDE AND ALSO VERBALIZED UNDERSTANDING. NO IV ACCESS. DRESSED IN OWN CLOTHING. OFF UNIT VIA W/C AT 1040. NO PERSONAL BELONGINGS LEFT BEHIND IN ROOM.
== END 2022-11-01 10:43 | disposition home health service (06) | DRG 77 ==
LOC: ER 13:39 → ICUW 13:40 → PCU 13:40 → MEDS 21:59 → ICUW 21:59 → MEDS 10-08 13:33 → ENPENDDIS 10-29 17:46 → MEDS 11-01 10:43
PROVIDERS: Hospitalist; Internal Medicine; Physician Assistant; Student in an Organized Health Care Education/Training Program; ADMIT Internal Medicine
PROC: 4A10X4Z Monitoring of Central Nervous Electrical Activity, External Approach (ICD-10-PCS; principal; 2022-10-11)
DX: I67.4 Hypertensive encephalopathy (principal); G93.6 Cerebral edema; I67.83 Posterior reversible encephalopathy syndrome; N17.9 Acute kidney failure, unspecified; F03.918 Unspecified dementia, unspecified severity, with other behavioral disturbance; I16.1 Hypertensive emergency; E78.5 Hyperlipidemia, unspecified; K21.9 Gastro-esophageal reflux disease without esophagitis; Z20.822 Contact with and (suspected) exposure to COVID-19; E03.9 Hypothyroidism, unspecified; E87.5 Hyperkalemia; I12.9 Hypertensive chronic kidney disease with stage 1 through stage 4 chronic kidney disease, or unspecified chronic kidney disease; N18.30 Chronic kidney disease, stage 3 unspecified; D63.1 Anemia in chronic kidney disease; I16.0 Hypertensive urgency; I25.10 Atherosclerotic heart disease of native coronary artery without angina pectoris; F32.A Depression, unspecified; F10.20 Alcohol dependence, uncomplicated; J45.909 Unspecified asthma, uncomplicated; G47.33 Obstructive sleep apnea (adult) (pediatric); Y90.0 Blood alcohol level of less than 20 mg/100 ml; Z86.73 Personal history of transient ischemic attack (TIA), and cerebral infarction without residual deficits; Z85.21 Personal history of malignant neoplasm of larynx; Z87.19 Personal history of other diseases of the digestive system; Z90.49 Acquired absence of other specified parts of digestive tract; Z90.89 Acquired absence of other organs; Z98.890 Other specified postprocedural states; Z93.0 Tracheostomy status; Z88.8 Allergy status to other drugs, medicaments and biological substances; Z79.82 Long term (current) use of aspirin; Z79.890 Hormone replacement therapy; Z79.899 Other long term (current) drug therapy; W18.39XA Other fall on same level, initial encounter; Y92.009 Unspecified place in unspecified non-institutional (private) residence as the place of occurrence of the external cause
CPT/HCPCS: 0241U; 31720; 36415; 51701; 70450; 70551; 71045; 71046; 72125; 80048; 80053; 81001; 82550; 82553; 82570; 82803; 82947; 83690; 83735; 84100; 84300; 84439; 84443; 84484; 84540; 85025; 85651; 86140; 87070; 87077; 87147; 87186; 87205; 87529; 92526; 92610; 93005; 93010; 94760; 95819; 96374-59; 96375-59; 97161; 97162; 97165; 99285-25; A9270; G0480; J0133; J0360; J0610; J1200; J1630; J1650; J1790; J1815; J2060; J2405; J7030; J7799

== ENCOUNTER 2023-01-18 10:15 | Emergency (ER) | payer MEDICARE, OTHER ==
[~2023-01-18] VITALS: Ht 175.3 cm; Wt 81.7 kg
[~2023-01-18 10:15] MED LIST changes: +B-1100 M1 PT; +CLOP75 PO; +DOCU LIQUI50 MG/5 ML PT; +FOLI1 PT; +LEVSOD100 PT; +LOSA25 PT; +METO50 PT; +MULVITA PT; +NORVASC10 MG PT; +OMEP20ER PT
[2023-01-18 11:38] LABS: BASOPHILS ABSOLUTE AUTO 0.04 K/mm3 (0.00-0.23); BASOPHILS PERCENT AUTO 1 % (0-2); EOSINOPHILS ABSOLUTE AUTO 0.17 K/mm3 (0.00-0.68); EOSINOPHILS PERCENT AUTO 2 % (0-6); Hematocrit 41.5 % (37.0-53.0); Hemoglobin 13.7 g/dL (13.5-17.5); IMMATURE GRAN ABSOLUTE AUTO 0.03 K/mm3 (0.00-0.10); IMMATURE GRAN PERCENT AUTO 0 % (0-1); LYMPHOCYTES ABSOLUTE AUTO 1.56 K/mm3 (0.84-5.20); LYMPHOCYTES PERCENT AUTO 22 % (21-46); MONOCYTES ABSOLUTE AUTO 0.52 K/mm3 (0.16-1.47); MONOCYTES PERCENT AUTO 7 % (4-13); Mean Corpuscular Volume 94 fL (80-100); NEUTROPHILS ABSOLUTE AUTO 4.92 K/mm3 (1.96-9.15); NEUTROPHILS PERCENT AUTO 68 % (41-73); Platelet Count 238 K/mm3 (150-400); RDW Coefficient Variation 13.2 % (11.7-14.2); RDW Standard Deviation 45.1 fL (35.1-46.3); Red Blood Cell Count 4.42 M/mm3 (4.30-5.90); White Blood Cell Count 7.24 K/mm3 (4.00-11.30)
[2023-01-18 12:06] LABS: Albumin, Blood 3.5 g/dL (3.4-5.0); Albumin/Globulin Ratio 0.8 (0.8-1.8); Bilirubin, Total 0.3 mg/dL (0.1-1.0); Calcium, Blood 8.7 mg/dL (8.5-10.1); Creatinine, Blood 1.27 mg/dL (0.60-1.20); Globulin, Blood 4.5 g/dL (2.2-4.0); Potassium, Blood 4.9 mmol/L (3.5-5.5)
[2023-01-18 15:15] VITALS: BP 151/77
[2023-01-18] MEDS ORDERED: CEPH500 PO (15:20)
== END 2023-01-18 15:54 | disposition home or self-care (01) ==
LOC: ER 10:15
PROVIDERS: Student in an Organized Health Care Education/Training Program
DX: T81.49XA Infection following a procedure, other surgical site, initial encounter (principal); L03.311 Cellulitis of abdominal wall; Z88.8 Allergy status to other drugs, medicaments and biological substances; Z79.899 Other long term (current) drug therapy; Z79.82 Long term (current) use of aspirin; I10 Essential (primary) hypertension; E78.5 Hyperlipidemia, unspecified; K21.9 Gastro-esophageal reflux disease without esophagitis
CPT/HCPCS: 36415; 74177; 80053; 85025; 96360-59; 99284-25; A9270; J7030; Q9967

== ENCOUNTER 2024-05-22 08:27 | Emergency (ER) | payer MEDICARE, OTHER ==
[~2024-05-22] VITALS: Ht 154.9 cm; Wt 81.7 kg
[~2024-05-22 08:27] MED LIST changes: +CEPH500 PO
== END 2024-05-22 12:28 | disposition home or self-care (01) ==
LOC: ER 08:27
DX: K94.23 Gastrostomy malfunction (principal); Z88.8 Allergy status to other drugs, medicaments and biological substances; Z79.899 Other long term (current) drug therapy; Z79.82 Long term (current) use of aspirin; I10 Essential (primary) hypertension; E78.5 Hyperlipidemia, unspecified; K21.9 Gastro-esophageal reflux disease without esophagitis; E03.9 Hypothyroidism, unspecified
CPT/HCPCS: 43762; 49465; 99283-25; Q9963

== ENCOUNTER 2025-03-19 13:54 | Emergency (ER) | payer MEDICARE, OTHER ==
[~2025-03-19] VITALS: Ht 177.8 cm; Wt 86.2 kg
[~2025-03-19 13:54] MED LIST changes: +EUTHYROX125 MCG PT; +MEMA5TAB; +VITAMIN B12500 MCG PT
[2025-03-19 14:31] LABS: BASOPHILS ABSOLUTE AUTO 0.04 K/mm3 (0.00-0.23); BASOPHILS PERCENT AUTO 0 % (0-2); EOSINOPHILS ABSOLUTE AUTO 0.06 K/mm3 (0.00-0.68); EOSINOPHILS PERCENT AUTO 1 % (0-6); Hematocrit 49.9 % (37.0-53.0); Hemoglobin 15.7 g/dL (13.5-17.5); IMMATURE GRAN ABSOLUTE AUTO 0.03 K/mm3 (0.00-0.10); IMMATURE GRAN PERCENT AUTO 0 % (0-1); LYMPHOCYTES ABSOLUTE AUTO 2.45 K/mm3 (0.84-5.20); LYMPHOCYTES PERCENT AUTO 26 % (21-46); MONOCYTES ABSOLUTE AUTO 0.47 K/mm3 (0.16-1.47); MONOCYTES PERCENT AUTO 5 % (4-13); Mean Corpuscular HGB 29.7 pg (26.0-34.0); Mean Corpuscular HGB Conc 31.5 g/dL (31.5-36.5); Mean Corpuscular Volume 94 fL (80-100); NEUTROPHILS ABSOLUTE AUTO 6.55 K/mm3 (1.96-9.15); NEUTROPHILS PERCENT AUTO 68 % (41-73); Platelet Count 188 K/mm3 (150-400); RDW Coefficient Variation 14.7 % (11.7-14.2); RDW Standard Deviation 51.1 fL (35.1-46.3); Red Blood Cell Count 5.29 M/mm3 (4.30-5.90)
[2025-03-19 15:01] LABS: Albumin, Blood 3.5 g/dL (3.4-5.0); Albumin/Globulin Ratio 0.6 (0.8-1.8); Bilirubin, Total 0.7 mg/dL (0.1-1.0); Calcium, Blood 9.5 mg/dL (8.5-10.1); Creatinine, Blood 1.39 mg/dL (0.60-1.20); Globulin, Blood 5.4 g/dL (2.2-4.0); Potassium, Blood 5.6 mmol/L (3.5-5.5); Total Protein, Blood 8.9 g/dL (6.4-8.2)
[2025-03-19] MEDS ORDERED: NS 1,000 ML IV SCH (15:50)
[2025-03-19 20:23] VITALS: BP 147/80
== END 2025-03-19 20:23 | disposition home or self-care (01) ==
LOC: ER 13:54
PROVIDERS: Student in an Organized Health Care Education/Training Program
DX: S00.03XA Contusion of scalp, initial encounter (principal); R55 Syncope and collapse; E78.5 Hyperlipidemia, unspecified; K21.9 Gastro-esophageal reflux disease without esophagitis; I12.9 Hypertensive chronic kidney disease with stage 1 through stage 4 chronic kidney disease, or unspecified chronic kidney disease; N18.30 Chronic kidney disease, stage 3 unspecified; W18.30XA Fall on same level, unspecified, initial encounter; Z79.82 Long term (current) use of aspirin; Z79.899 Other long term (current) drug therapy; Z88.8 Allergy status to other drugs, medicaments and biological substances
CPT/HCPCS: 70450; 80053; 85025; 93005; 93010; 96360; 99284-25; J7030